=== PATIENT | male | born 1955 | race Caucasian/White ===

== ENCOUNTER 2023-05-26 10:19 | Emergency (ER) | payer MEDICARE, OTHER, SELFPAY ==
[2023-05-26 10:22] VITALS: BP 138/62; PULSE 62; RESP 20; TEMP 37.2; O2SAT 96; BMI 31.9
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
== END 2023-05-26 12:09 | disposition home or self-care (01) ==
PROVIDERS: Emergency Provider Emergency Medicine Emergency Medical Services; PCP Nurse Practitioner Family
DX: S97.81XA Crushing injury of right foot, initial encounter (principal); V03.90XA Pedestrian on foot injured in collision with car, pick-up truck or van, unspecified whether traffic or nontraffic accident, initial encounter; F17.210 Nicotine dependence, cigarettes, uncomplicated
CPT/HCPCS: 73610; 73630; 99283

== ENCOUNTER 2023-05-28 10:55 | Outpatient (OUT) | payer MEDICARE, OTHER, SELFPAY ==
--- NOTE | 2023-05-28 | XR_ITS ---
The [address] [address] Patient Name: REJI TIMMONS MRN: [id number] date: 1955 Sex: M Assigned Patient Location: [facility] Current Patient Location: [facility] Accession/Order Number: [id number] Exam Date: 05/28/2023 11:28 Report Date: 05/28/2023 14:09 At the request of: ROSSY AMATO Procedure: XR ankle RT min 3V PROCEDURE: XR foot RT min 3V, XR ankle RT min 3V HISTORY: RIGHT FOOT PAIN COMPARISON: XR foot and ankle right 05/26/2023 FINDINGS: BONES:Bunion formation and hallux valgus of first metatarsophalangeal joint. Small separate ossification with corticated margins medial to the head of the first metatarsal favoring remote fracture fragment or heterotopic bone formation from remote injury. Mild degenerative changes the midfoot. Small calcaneal plantar spur. Possible hammertoe deformity of second toe. 1 mm calcification distal to the medial malleolus; nonspecific. SOFT TISSUES:Prominent swelling surrounding the ankle and dorsal soft tissue swelling. EFFUSION:None visible. OTHER: Negative. XR/XR ankle RT min 3V IMPRESSION: 1. No appreciable acute bone abnormality. 2. Hallux valgus deformity first metatarsal phalangeal joint. 3. Dorsal soft tissue swelling. 4. 1 mm calcification distal to the medial malleolus; avulsion fracture versus sequela of remote injury. 5. No significant change compared to prior study. Electronically authenticated by: SUHA VALLE Date: 05/28/2023 14:09
--- NOTE | 2023-05-28 | XR_ITS ---
The [address] [address] Patient Name: REJI TIMMONS MRN: [id number] date: 1955 Sex: M Assigned Patient Location: [facility] Current Patient Location: [facility] Accession/Order Number: [id number] Exam Date: 05/28/2023 11:00 Report Date: 05/28/2023 14:09 At the request of: ROSSY AMATO Procedure: XR foot RT min 3V PROCEDURE: XR foot RT min 3V, XR ankle RT min 3V HISTORY: RIGHT FOOT PAIN COMPARISON: XR foot and ankle right 05/26/2023 FINDINGS: BONES:Bunion formation and hallux valgus of first metatarsophalangeal joint. Small separate ossification with corticated margins medial to the head of the first metatarsal favoring remote fracture fragment or heterotopic bone formation from remote injury. Mild degenerative changes the midfoot. Small calcaneal plantar spur. Possible hammertoe deformity of second toe. 1 mm calcification distal to the medial malleolus; nonspecific. SOFT TISSUES:Prominent swelling surrounding the ankle and dorsal soft tissue swelling. EFFUSION:None visible. OTHER: Negative. XR/XR foot RT min 3V IMPRESSION: 1. No appreciable acute bone abnormality. 2. Hallux valgus deformity first metatarsal phalangeal joint. 3. Dorsal soft tissue swelling. 4. 1 mm calcification distal to the medial malleolus; avulsion fracture versus sequela of remote injury. 5. No significant change compared to prior study. Electronically authenticated by: SUHA VALLE Date: 05/28/2023 14:09
--- OUTSIDE RECORDS SUMMARY | 2023-05-28 11:03 | XMS_ITS | CCD ---
Author Name Unknown Address [address] [place] [id number] Organization [facility] Care Team Providers Care Nursing Techn Name Role Phone CORBIN MCFARLAND Attending CORBIN Payne Consulting CORBIN Payne Admitting Unavailable DR MATY MANCILLA Primary Care Unavaila Juvenal Villela Attending Unavailable Juvenal Disla Admitting Unavailable Problems Problem Classification Problem Date Documented Da te Episodic/Chronic Heart valve disorders (1 source) Nonrheumatic aortic (valve) insufficiency; Translations: [NONRHEUMATIC AORTIC INSUFFICIENCY] Onset: 11-15-2021 Chronic Other circulatory disease (4 sources) Hypotension, unspecified; Translations: [HYPOTENSION UNSPECIFIED] Onset: 11-13-2021 Episodic Results Test Name Value Interpretation Reference Range Facility C-Reactive Proteinon 024 C-Reactive Protein 3.3 mg/dL High 0.0-0.5 [facility] Comment on above: Result Comment: PERF ORMED BY: [place] [address] PATHOLOGIST POMPOM MAKER KEYSHA YIP M.D. Performed By: #### E SR, CK, CRP #### [facility] [address] [place], [place] [id number] [facility] Creatine Kinaseon 05-27-2023 CK [Catalytic activity/Vol] 262 U/L High 30-223 [facility] Comment on above: Result Comment: PERF ORMED BY: [place] [address] PATHOLOGIST POMPOM MAKER KEYSHA YIP M.D. Performed By: #### E SR, CK, CRP #### [facility] [address] [place] [address] [place] Erythrocyte Sedimentation Ra yony 05-27-2023 ESR (Bld) [Velocity] 17 mm/h Normal 0-19 [facility] Comment on above: Result Comment: PERF ORMED BY: [place] [address] PATHOLOGIST POMPOM MAKER KEYSHA YIP M.D. Performed By: #### E SR, CK, CRP #### [address] ECHOCARDIO M/2D COMPLETEon 0 11-13-2021 ECHOCARDIO M/2D COMPLETE Patient: BOO MCALLISTER Exam Date: 11/13/2021 : 1955 Gender:M Ordering : CORBIN MCFARLAND FAMILY N Admission #: [id number] Family : Order #: [id number] CLICK HERE TO VIEW EXAM ECHOCARDIOGRAM REPORT PROCEDURE: CARDIO PULMONARY ECHOCARDIO M/2D COMP INDICATIONS: Hypotension COMPARISON: None. DESCRIPTION: COMPLETE ECHOCARDIOGRAM Real-time transthoracic echocardiography with 2D, M-mode, spectral and color flow Doppler performed. QUALITY: Technical quality was good. LEFT VENTRICLE: Normal chamber size. Mild concentric left ventricular hypertrophy. Global left ventricular systolic function is normal. Visual estimation of left ventricular ejection fraction is 60%. LV EF: DIASTOLIC: Diastolic function is indeterminate. ATRIAL SEPTUM: LEFT ATRIUM: Normal chamber size. RIGHT ATRIUM: Normal chamber size. RIGHT VENTRICLE: Normal chamber size. Normal right ventricular systolic function. TRICUSPID VALVE: Normal mobility and thickness. No stenosis with trivial regurgitation. Mild pulmonary hypertension. RVSP 42 mmHg. MITRAL VALVE: Normal mobility and thickness. No mitral valve prolapse. No evidence of mitral valve stenosis. Trivial mitral regurgitation. AORTIC VALVE: Normal trileaflet appearance. Mildly calcified aortic valve. Normal leaflet mobility. No evidence of aortic valve stenosis. Mild to moderate aortic regurgitation. AORTIC ROOT: Normal diameter and appearance. PULMONIC VALVE: Normal thickness and mobility. No stenosis. PERICARDIUM: No evidence of pericardial effusion. IVC: Collapses with inspirations. Normal size. PLEURA: CONCLUSION: 1. Mild concentric left ventricular hypertrophy. Normal left ventricular systolic function. Ejection fraction is 60%. 2. Normal right ventricular function. 3. Mild to moderate aortic regurgitation. 4. Mildly elevated right-sided pressures. 5. No pericardial effusion. Adult Echocardiography Procedure Report Left Ventricle LVEDD (3.7 - 5.6 cm): 5.12 cm LVESD (2.2 - 4.0 cm): 3.32 cm LVIVS thickness (0.6 - 1.2 cm): 1.35 cm LVPW thickness (0.5 - 1.0 cm): 1.20 cm e': 7.13 cm/s E - e': 12.30 LVOT Area (cm2): 3.80 cm2 LVOT Diameter 2.20 cm Left Ventricular Ejection Fraction: 60 % Left Atrium LA Volume Index (2D A2C): 32.90 ml/m2 Left Atrium Systolic Dimension: 4.30 cm Left Atrium Systolic Area(A2C): 23.90 cm2 Left Atrium Systolic Area(A4C): 19.10 cm2 Left Atrium Systolic Volume(A2C): 26059 mm3 Left Atrium Systolic Volume(A4C): 96277 mm3 Mitral Valve MV E to A Ratio: 1 Deceleration Orleans: 4180 mm/s2 Mitral Valve A-Wave Peak Velocity: 87.90 cm/s Mitral Valve E-Wave Peak Velocity: 87.40 cm/s Right Ventricle RV Internal Diastolic Dimension: 4.20 cm Aorta AO Root Diam: 3.60 cm Aortic Valve AoV Area (Peak Laureano): 2.25 cm2 Deceleration Orleans: 1600 mm/s2 Pressure Half-Time: 975 ms Peak Velocity: 531.00 cm/s Peak Gradient: 113 mm[Hg] Aortic Valve Cusp Separation: 1.90 cm Peak Velocity(Antegrade Flow): 179.00 cm/s Peak Gradient(Antegrade Flow): 13 mm[Hg] Tricuspid Valve Peak Velocity (Regurgitant Flow): 297.00 cm/s Pulmonic Valve Peak Velocity: 88.20 cm/s Peak Gradient: 3 mm[Hg] Right Atrium Dictated by: Phong Leon M.D. on 11/13/2021 at 19:29 Approved by: Phong Leon M.D. on 11/13/2021 at 19:[address] [facility] Complete Blood Count with Au to Diffon 10-16-2021 Basophils (Bld) [#/Vol] 0.05 10*3/uL Normal 0.00-0.20 [facility] Comment on above: Performed By: #### C BCAD, CMP #### [facility] [address] [place] [id number] Basophils/100 WBC (Bld) 0.6 % Normal [facility] Specialist Comment on above: Performed By: #### C MARIA LUISA, CMP #### [facility] [address] [place], [place] [id number] Eosinophils (Bld) [#/Vol] 0.41 10*3/uL Normal 0.02-0.50 [facility] Comment on above: Performed By: #### C MARIA LUISA, CMP #### [facility] [address] [place], [place] [id number] Eosinophils/100 WBC (Bld) 4.9 % Normal [facility] Specialist Comment on above: Performed By: #### Latanya GLASS, CMP #### [facility] [address] [place], [place] [id number] Erythrocyte distribution width (RBC) [Ratio] 14.6 % Normal 11.0-15.0 [facility] Comment on above: Performed By: #### C MARIA LUISA, CMP #### [facility] [address] [place], [place] [id number] Hematocrit (Bld) [Volume fraction] 45.8 % Normal 38.5-50.0 [facility] Comment on above: Performed By: #### Latanya GLASS, CMP #### [facility] [address] [place], [place] [id number] Hemoglobin (Bld) [Mass/Vol] 14.9 g/dL Normal 13.0-17.1 [facility] Comment on above: Performed By: #### C BCABryce, CMP #### [facility] [address] [place], [place] [id number] Lymphocytes (Bld) [#/Vol] 2.4 10*3/uL Normal 0.9-3.9 [facility] Specialist Comment on above: Performed By: #### C BCABryce, CMP #### [facility] [address] [place], [place] [id number] Lymphocytes/100 WBC (Bld) 28.5 % Normal [facility] Specialist Comment on above: Performed By: #### C MARIA LUISA, CMP #### [facility] [address] [place], [place] [id number] MCH (RBC) [Entitic mass] 29.9 pg Normal 27.0-33.0 [facility] Special[facility] Comment on above: Performed By: #### C MARIA LUISA, CMP #### [facility] [address] [place], [place] [id number] MCHC (RBC) [Mass/Vol] 32.5 g/dL Normal 32.0-36.0 [facility] Special[facility] Comment on above: Performed By: #### C BCABryce, CMP #### [facility] [address] [place], [place] [id number] MCV (RBC) [Entitic vol] 92 fL Normal 80-100 [facility] Specialist Comment on above: Performed By: #### C BCABryce, CMP #### [facility] [address] [place], [place] [id number] Monocytes (Bld) [#/Vol] 0.7 10*3/uL Normal 0.2-0.9 [facility] Special[facility] Comment on above: Performed By: #### C BCABryce, CMP #### [facility] [address] [place], [place] [id number] Monocytes/100 WBC (Bld) 7.8 % Normal [facility] Specialist Comment on above: Performed By: #### C BCABryce, CMP #### [facility] [address] [place], [place] [id number] Neutrophils (Bld) [#/Vol] 4.9 10*3/uL Normal 1.5-7.8 [facility] Special[facility] Comment on above: Performed By: #### C BCAD, CMP #### [facility] [address] [place], [place] [id number] Neutrophils/100 WBC (Bld) 58.0 % Normal [facility] Specialist Comment on above: Performed By: #### C BCAD, CMP #### [facility] [address] [place], [place] [id number] Platelet mean volume (Bld) [Entitic vol] 11.10 fL Normal 7.50-12.50 [facility] Special[facility] Comment on above: Performed By: #### C BCAD, CMP #### [facility] [address] [place], [place] [id number] Platelets (Bld) [#/Vol] 230 10*3/uL Normal 140-400 [facility] Specialist Comment on above: Performed By: #### C BCAD, CMP #### [facility] [address] [place], [place] [id number] RBC (Bld) [#/Vol] 4.99 10*6/uL Normal 4.20-5.80 [facility] Specialist Comment on above: Performed By: #### C BCAD, CMP #### [facility] [address] [place], [place] [id number] RDW-SD 49.0 fL Normal 37.0-50.0 [facility] Specialist Comment on above: Performed By: #### C BCAD, CMP #### [facility] [address] [place], [place] [id number] WBC (Bld) [#/Vol] 8.4 10*3/uL Normal 3.8-11.0 [facility] Comment on above: Performed By: #### C BCAD, CMP #### [facility] [address] [place], [place] [id number] Comprehensive Metabolic Pane [facility] 10-16-2021 Albumin [Mass/Vol] 4.6 g/dL Normal 3.6-5.1 [facility] Specialist Comment on above: Performed By: #### C BCAD, CMP #### [facility] [address] [place], [place] [id number] Albumin/Globulin [Mass ratio] 2.4 {ratio} Normal 1.0-2.5 [facility] Specialist Comment on above: Performed By: #### C BCAD, CMP #### [facility] [address] [place], [place] [id number] ALP [Catalytic activity/Vol] 63 U/L Normal 40-129 [facility] Specialist Comment on above: Performed By: #### C BCAD, CMP #### [facility] [address] [place], [place] [id number] ALT [Catalytic activity/Vol] 27 U/L Normal 9-46 [facility] Specialist Comment on above: Result Comment: 04/18 Female reference range changed. Performed By: #### C BCAD, CMP #### [facility] [address] [place], [place] [id number] Anion gap [Moles/Vol] 18 mmol/L Normal 12-20 [facility] Specialist Comment on above: Result Comment: Effe ctive 05/24/2019 reference range changed. Performed By: #### C BCAD, CMP #### [facility] [address] [place], [place] [id number] AST [Catalytic activity/Vol] 15 U/L Normal 10-40 [facility] Comment on above: Performed By: #### C BCAD, CMP #### [facility] [address] [place], [place] [id number] BUN/CREA 22 Ratio Normal 6-22 [facility] Comment on above: Performed By: #### C BCAD, CMP #### [facility] [address] [place], [place] [id number] Calcium [Mass/Vol] 9.4 mg/dL Normal 8.6-10.2 [facility] Comment on above: Performed By: #### C BCAD, CMP #### [facility] [address] [place], [place] [id number] Chloride [Moles/Vol] 103 mmol/L Normal 98-107 [facility] Comment on above: Performed By: #### C BCAD, CMP #### [facility] [address] [place], [place] [id number] CO2 [Moles/Vol] 24 mmol/L Normal 20-31 [facility] Comment on above: Performed By: #### C BCAD, CMP #### [facility] [address] [place], [place] [id number] Creatinine [Mass/Vol] 0.9 mg/dL Normal 0.7-1.4 [facility] Comment on above: Performed By: #### C BCAD, CMP #### [facility] [address] [place], [place] [id number] eGFRAA 110 mL/min/1.73m2 Normal >60 [facility] Comment on above: Performed By: #### C BCAD, CMP #### [facility] [address] [place], [place] [id number] eGFRNAA 91 mL/min/1.73m2 Normal >60 [facility] Comment on above: Performed By: #### C BCAD, CMP #### [facility] [address] [place], [place] [id number] Globulin (S) [Mass/Vol] 1.9 g/dL Normal 1.9-3.7 [facility] Comment on above: Performed By: #### C BCAD, CMP #### [facility] [address] [place], [place] [id number] Glucose [Mass/Vol] 178 mg/dL High 65-99 [facility] Rec[facility] Comment on above: Result Comment: For FASTING Glucose --- ADA reference ranges: Normal 65-99 mg/dl Prediabetes 100-125 Diabetes >/= 126 Performed By: #### C BCAD, CMP #### [facility] [address] [place], [place] [id number] Potassium [Moles/Vol] 4.6 mmol/L Normal 3.5-5.5 [facility] Comment on above: Performed By: #### C BCAD, CMP #### [facility] [address] [place], [place] [id number] Protein [Mass/Vol] 6.5 g/dL Normal 6.1-8.1 [facility] Rec[facility] Comment on above: Performed By: #### C BCAD, CMP #### [facility] [address] [place], [place] [id number] Sodium [Moles/Vol] 139 mmol/L Normal 135-146 [facility] Grade Rec[facility] Comment on above: Performed By: #### C BCAD, CMP #### [facility] [address] [place], [place] [id number] TBIL <0.3 Normal [facility] Comment on above: Performed By: #### C BCAD, CMP #### [facility] [address] [place], [place] [id number] Urea nitrogen [Mass/Vol] 19 mg/dL Normal 7-25 [facility] Comment on above: Performed By: #### C BCAD, CMP #### [facility] [address] [place], [place] [id number] XR Chest 2 Views*on 10-17-19 22 XR Chest 2 Views* HISTORY: Wheezing, fatigue FINDINGS: Mild peribronchial cuffing is present, which may suggest bronchitis. No focal infiltrates or worrisome mass lesions are seen. No pneumothorax is present. Cardiac silhouette, skeletal structures and soft tissues are unremarkable. Distal cervical fusion hardware. IMPRESSION: No focal infiltrates or edema. Report reported and signed by Jesus Mason on 10/16/2021 1132 Normal [facility] Complete Blood Count with Au to Diffon 05-08-2021 Basophils (Bld) [#/Vol] 0.08 10*3/uL Normal 0.00-0.20 [facility] Comment on above: Performed By: #### C MP, VITD, TSH, LIPD, CBCAD #### [facility] [address] [place], [place] [id number] Basophils/100 WBC (Bld) 0.8 % Normal [facility] Comment on above: Performed By: #### C MP, VITD, TSH, LIPD, CBCAD #### [facility] [address] [place], [place] [id number] Eosinophils (Bld) [#/Vol] 0.37 10*3/uL Normal 0.02-0.50 [facility] Comment on above: Performed By: #### C MP, VITD, TSH, LIPD, CBCAD #### [facility] [address] [place], [place] [id number] Eosinophils/100 WBC (Bld) 3.8 % Normal [facility] Specialist Comment on above: Performed By: #### C MP, VITD, TSH, LIPD, CBCAD #### [facility] [address] [place], [place] [id number] Erythrocyte distribution width (RBC) [Ratio] 13.8 % Normal 11.0-15.0 [facility] Comment on above: Performed By: #### C MP, VITD, TSH, LIPD, CBCAD #### [facility] [address] [place], [place] [id number] Hematocrit (Bld) [Volume fraction] 44.8 % Normal 38.5-50.0 [facility] Specialist Comment on above: Performed By: #### C MP, VITD, TSH, LIPD, CBCAD #### [facility] [address] [place], [place] [id number] Hemoglobin (Bld) [Mass/Vol] 14.6 g/dL Normal 13.0-17.1 [facility] Specialist Comment on above: Performed By: #### C MP, VITD, TSH, LIPD, CBCAD #### [facility] [address] [place], [place] [id number] Lymphocytes (Bld) [#/Vol] 3.0 10*3/uL Normal 0.9-3.9 [facility] Specialist Comment on above: Performed By: #### C MP, VITD, TSH, LIPD, CBCAD #### [facility] [address] [place], [place] [id number] Lymphocytes/100 WBC (Bld) 30.7 % Normal [facility] Specialist Comment on above: Performed By: #### C MP, VITD, TSH, LIPD, CBCAD #### [facility] [address] [place], [place] [id number] MCH (RBC) [Entitic mass] 30.0 pg Normal 27.0-33.0 [facility] Specialist Comment on above: Performed By: #### C MP, VITD, TSH, LIPD, CBCAD #### [facility] [address] [place], [place] [id number] MCHC (RBC) [Mass/Vol] 32.6 g/dL Normal 32.0-36.0 [facility] Specialist Comment on above: Performed By: #### C MP, VITD, TSH, LIPD, CBCAD #### [facility] [address] [place], [place] [id number] MCV (RBC) [Entitic vol] 92 fL Normal 80-100 [facility] Specialist Comment on above: Performed By: #### C MP, VITD, TSH, LIPD, CBCAD #### [facility] [address] [place], [place] [id number] Monocytes (Bld) [#/Vol] 0.9 10*3/uL Normal 0.2-0.9 [facility] Comment on above: Performed By: #### C MP, VITD, TSH, LIPD, CBCAD #### [facility] [address] [place], [place] [id number] Monocytes/100 WBC (Bld) 8.9 % Normal [facility] Comment on above: Performed By: #### C MP, VITD, TSH, LIPD, CBCAD #### [facility] [address] [place], [place] [id number] Neutrophils (Bld) [#/Vol] 5.4 10*3/uL Normal 1.5-7.8 [facility] Comment on above: Performed By: #### C MP, VITD, TSH, LIPD, CBCAD #### [facility] [address] [place], [place] [id number] Neutrophils/100 WBC (Bld) 55.5 % Normal [facility] Comment on above: Performed By: #### C MP, VITD, TSH, LIPD, CBCAD #### [facility] [address] [place], [place] [id number] Platelet mean volume (Bld) [Entitic vol] 10.70 fL Normal 7.50-12.50 [facility] Comment on above: Performed By: #### C MP, VITD, TSH, LIPD, CBCAD #### [facility] [address] [place], [place] [id number] Platelets (Bld) [#/Vol] 242 10*3/uL Normal 140-400 [facility] Comment on above: Performed By: #### C MP, VITD, TSH, LIPD, CBCAD #### [facility] [address] [place], [place] [id number] RBC (Bld) [#/Vol] 4.86 10*6/uL Normal 4.20-5.80 [facility] Comment on above: Performed By: #### C MP, VITD, TSH, LIPD, CBCAD #### [facility] [address] [place], [place] [id number] RDW-SD 47.3 fL Normal 37.0-50.0 [facility] Comment on above: Performed By: #### C MP, VITD, TSH, LIPD, CBCAD #### [facility] [address] [place], [place] [id number] WBC (Bld) [#/Vol] 9.7 10*3/uL Normal 3.8-11.0 [place] [place] [facility] Comment on above: Performed By: #### C MP, VITD, TSH, LIPD, CBCAD #### [facility] [address] [place], [place] [id number] Comprehensive Metabolic Pane wil[place] 05-08-2021 Albumin [Mass/Vol] 4.7 g/dL Normal 3.6-5.1 [place] [facility] [place] [facility] Comment on above: Performed By: #### C MP, VITD, TSH, LIPD, CBCAD #### [facility] [address] [place], [place] [id number] Albumin/Globulin [Mass ratio] 2.6 {ratio} High 1.0-2.5 [facility] Specialist Comment on above: Performed By: #### C MP, VITD, TSH, LIPD, CBCAD #### [facility] [address] [place], [place] [id number] ALP [Catalytic activity/Vol] 60 U/L Normal 40-129 [facility] Specialist Comment on above: Performed By: #### C MP, VITD, TSH, LIPD, CBCAD #### [facility] [address] [place], [place] [id number] ALT [Catalytic activity/Vol] 27 U/L Normal 9-46 [facility] Comment on above: Result Comment: 04/18 Female reference range changed. Performed By: #### C MP, VITD, TSH, LIPD, CBCAD #### [facility] [address] [place], [place] [id number] Anion gap [Moles/Vol] 19 mmol/L Normal 12-20 [facility] Specialist Comment on above: Result Comment: Effe ctive 05/24/2019 reference range changed. Performed By: #### C MP, VITD, TSH, LIPD, CBCAD #### [facility] [address] [place], [place] [id number] AST [Catalytic activity/Vol] 16 U/L Normal 10-40 [facility] Comment on above: Performed By: #### C MP, VITD, TSH, LIPD, CBCAD #### [facility] [address] [place], [place] [id number] Bilirubin [Mass/Vol] 0.35 mg/dL Normal 0.30-1.20 [facility] Specialist Comment on above: Performed By: #### C MP, VITD, TSH, LIPD, CBCAD #### [facility] [address] [place], [place] [id number] BUN/CREA 24 Ratio High 6-22 [facility] Specialist Comment on above: Performed By: #### C MP, VITD, TSH, LIPD, CBCAD #### [facility] [address] [place], [place] [id number] Calcium [Mass/Vol] 9.5 mg/dL Normal 8.6-10.2 [facility] Comment on above: Performed By: #### C MP, VITD, TSH, LIPD, CBCAD #### [facility] [address] [place], [place] [id number] Chloride [Moles/Vol] 99 mmol/L Normal 98-107 [facility] Specialist Comment on above: Performed By: #### C MP, VITD, TSH, LIPD, CBCAD #### [facility] [address] [place], [place] [id number] CO2 [Moles/Vol] 24 mmol/L Normal 20-31 [facility] Specialist Comment on above: Performed By: #### C MP, VITD, TSH, LIPD, CBCAD #### [facility] [address] [place], [place] [id number] Creatinine [Mass/Vol] 1.0 mg/dL Normal 0.7-1.4 [facility] Specialist Comment on above: Performed By: #### C MP, VITD, TSH, LIPD, CBCAD #### [facility] [address] [place], [place] [id number] eGFRAA 90 mL/min/1.73m2 Normal >60 [facility] Specialist Comment on above: Performed By: #### C MP, VITD, TSH, LIPD, CBCAD #### [facility] [address] [place], [place] [id number] eGFRNAA 74 mL/min/1.73m2 Normal >60 [facility] Specialist Comment on above: Performed By: #### C MP, VITD, TSH, LIPD, CBCAD #### [facility] [address] [place], [place] [id number] Globulin (S) [Mass/Vol] 1.8 g/dL Low 1.9-3.7 [facility] Comment on above: Performed By: #### C MP, VITD, TSH, LIPD, CBCAD #### [facility] [address] [place], [place] [id number] Glucose [Mass/Vol] 119 mg/dL High 65-99 [facility] Comment on above: Result Comment: For FASTING Glucose --- ADA reference ranges: Normal 65-99 mg/dl Prediabetes 100-125 Diabetes >/= 126 Performed By: #### C MP, VITD, TSH, LIPD, CBCAD #### [facility] [address] [place], [place] [id number] Potassium [Moles/Vol] 5.1 mmol/L Normal 3.5-5.5 [facility] Comment on above: Performed By: #### C MP, VITD, TSH, LIPD, CBCAD #### [facility] [address] [place], [place] [id number] Protein [Mass/Vol] 6.5 g/dL Normal 6.1-8.1 [facility] Grade Rec[facility] Comment on above: Performed By: #### C MP, VITD, TSH, LIPD, CBCAD #### [facility] [address] [place], [place] [id number] Sodium [Moles/Vol] 137 mmol/L Normal 135-146 [facility] Grade Recorder Comment on above: Performed By: #### C MP, VITD, TSH, LIPD, CBCAD #### [facility] [address] [place], [place] [id number] Urea nitrogen [Mass/Vol] 25 mg/dL Normal 7-25 [facility] Comment on above: Performed By: #### C MP, VITD, TSH, LIPD, CBCAD #### [facility] [address] [place], [place] [id number] Lipid Panelon 05-08-2021 Cholesterol [Mass/Vol] 120 mg/dL Low 125-200 [facility] Rec[facility] Comment on above: Result Comment: Low risk < 200mg/dL Borderline risk 201-239 mg/dl High risk > or equal to 240 Performed By: #### C MP, VITD, TSH, LIPD, CBCAD #### [facility] [address] [place], [place] [id number] Cholesterol in HDL [Mass/Vol] 26 mg/dL Low >40 [facility] Specialist Comment on above: Result Comment: High Cardiovascular Risk HDL <40 mg/dL Low Cardiovascular Risk HDL > or equal to 60 mg/dl Performed By: #### C MP, VITD, TSH, LIPD, CBCAD #### [facility] [address] [place], [place] [id number] Cholesterol in LDL [Mass/Vol] 50 mg/dL Normal [facility] Specialist Comment on above: Result Comment: LDL ATP III CLASSIFICATION LDL less than 100 mg/dl Optimal LDL 100-129 mg/dl Near or above optimal LDL 130-159 Borderline high LDL 160-189 High LDL greater than 189 mg/dl Very High Performed By: #### C MP, VITD, TSH, LIPD, CBCAD #### [facility] [address] [place], [place] [id number] Cholesterol in VLDL [Mass/Vol] 44 mg/dL Normal [facility] Specialist Comment on above: Performed By: #### C MP, VITD, TSH, LIPD, CBCAD #### [facility] [address] [place], [place] [id number] Cholesterol.total/C holesterol in HDL [Mass ratio] 5 {ratio} Normal [facility] Specialist Comment on above: Performed By: #### C MP, VITD, TSH, LIPD, CBCAD #### [facility] [address] [place], [place] [id number] Triglyceride [Mass/Vol] 221 mg/dL High 30-150 [facility] Specialist Comment on above: Result Comment: TRIG ATPIII CLASSIFICATIONS TRIG less than 150 mg/dl Normal TRIG 150-199 mg/dl Borderline High TRIG 200-500 mg/dl High TRIG greather than 500 mg/dl Very High Performed By: #### C MP, VITD, TSH, LIPD, CBCAD #### [facility] [address] [place], [place] [id number] Prostatic Specific Antigen, Totalon 05-08-2021 TPSA 0.427 ng/mL Normal <4.000 [facility] Grade Recorder Comment on above: Result Comment: PSA Test Method: ECLIA/Milagros e 601 Performed By: #### P SA #### [facility] [address] [place], [place] [id number] TSHon 05-08-2021 TSH 3.630 uIU/mL Normal 0.400-4.500 [facility] Grade Recorder Comment on above: Performed By: #### C MP, VITD, TSH, LIPD, CBCAD #### [facility] [address] [place], [place] [id number] Vitamin D 25-OHon 05-08-2021 VIT D 25 OH 52 ng/ml Normal >29 [facility] Specialist Comment on above: Result Comment: Laquita min D Status Deficiency <20 ng/mL Insufficiency 20-29 ng/mL Optimal 30-100 ng/mL Possible Toxicity >=150 ng/mL Performed By: #### C MP, VITD, TSH, LIPD, CBCAD #### [facility] [address] [place], [place] [id number] Patient Letter FTon 2020 Patient Letter [facility] (Inserted Image. Maty ble to display) August 28, 2020 BOO MCALLISTER [address] [place] [address] BOO MCALLISTER 1955 Dear Boo, This is a SECOND ATTEMPT to remind you that you are due for an appointment with Dr. Araujo or Dr. Zuniga. Please call [facility] at [phone] to schedule an appointment at your earliest convenience. Thank you, [facility] Reminderson 08-28-2020 Reminders - From: Marta Riojas MA To: [facility] - Reminders/Recalls; Sent: 10/18/2019 10:24:45 EDT Show up: 07/17/2020 10:24:00 EST Subject: REMINDER RECALL AUGUST 2020 Due Date/Time: 08/17/2020 10:24:00 EDT Reminder/Recall DR BANUELOS 5YR COLON 09/13/2020 First Recall Letter second recall letter Normal [facility] Patient Letter FTon 2020 Patient Letter [facility] (Inserted Image. Maty ble to display) July 19, 2020 BOO MCALLISTER [address] [facility] [place] [address] BOO MCALLISTER 1955 Dear Boo, This is a reminder that you are due for an appointment with Dr. Araujo or Dr. Zuniga. Please call [facility] at [phone] to schedule an appointment at your earliest convenience. Thank you, [facility] IntraOperative Documentson 0 07-11-2020 IntraOperative Documents [id number]#1.00CD:1 27 [facility] Comment on above: Other Comment: wrong folder Postoperative Documentson Postoperative Documents [id number]#1.00CD :127 [facility] IntraOperative Documentson 0 07-05-2020 IntraOperative Documents [id number]#1.00CD: 127 [facility] Coding Summary.on 07-03-2020 Coding Summary. CODING DATE: [facility] STATUS: Home (Routine DC) PAYOR: [facility] [place] APC DESCRIPTION 5811 Level 1 Nerve Procedures ADMIT DX: REASON FOR VISIT DX: G56.01 Carpal tunnel syndrome, right upper limb FINAL DX: PRINCIPAL: G56.01 Carpal tunnel syndrome, right upper limb SECONDARY: I10 Essential (primary) hypertension E11.9 Type 2 diabetes mellitus without complications K21.9 Gastro-esophageal reflux disease without esophagitis E78.00 Pure hypercholesterolemia, unspecified F32.9 Major depressive disorder, single episode, unspecified F17.210 Nicotine dependence, cigarettes, uncomplicated 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 However, the narrative phrase printed from the coding software may appear abbreviated, or result in slightly different terminology. Revised Coded By: Kim Sagastume Revised Date Saved: 07/03/2020 01:00 pm Normal [facility] Main OR Intraoperative Recor don 07-03-2020 Main OR Intraoperative Record IntraOp Document Type FT Summary Primary Physician: Deion Andres DO Finalized Date/Time: 07/03/20 09:06:54 Pt. Name: MCALLISTERBOO/Sex: 1955 Male Med Rec #: [id number] Physician: Deion Andres DO Financial #: [id number] Pt. Type: A Room/Bed: [facility]/ Admit/Disch: 06/28/20 06:01:55 - 06/28/20 10:05:00 Institution: Case Times FT Entry 1 Patient Times In Room 06/28/20 07:52:00 Out Room 06/28/20 08:17:00 Procedure Times Start 06/28/20 08:08:00 Stop 06/28/20 08:15:00 Anesthesia Times Start 06/28/20 07:52:00 Stop 06/28/20 08:17:00 Last Modified By: Ariane Fontenot RN 06/28/20 08:18:37 General Comments: 07/03/2020 Chart opened to review and send charges. Berto Lawrence SPRAY OPERATOR. Case Attendance FT Entry 1 Entry 2 Entry 3 Case Attendee Cas May CRNA, DO, David A Chapin RN, Jennifer P Role Performed NORRIS Surgeon - Primary Water Taxi Captain - Primary Time In 06/28/20 07:52:00 06/28/20 07:52:00 06/28/20 07:52:00 Time Out 06/28/20 08:17:00 06/28/20 08:17:00 06/28/20 08:17:00 Procedure CARPAL TUNNEL CARPAL TUNNEL CARPAL TUNNEL RELEASE(Right) RELEASE(Right) RELEASE(Right) Comments orientation Last Modified By: Po IRELAND, Ariane Fontenot RN, Ariane Richter RN 06/28/20 08:18:39 06/28/20 08:18:39 06/28/20 08:18:39 Entry 4 Entry 5 Case Attendee Avel IRELAND, Eriberto Winter Role Performed Water Taxi Captain - Primary Scrub - Primary Time In 06/28/20 07:52:00 06/28/20 07:52:00 Time Out 06/28/20 08:17:00 06/28/20 08:17:00 Procedure CARPAL TUNNEL CARPAL TUNNEL RELEASE(Right) RELEASE(Right) Comments Last Modified By: Ariane Fontenot RN, RN, Jennifer P 06/28/20 08:18:39 06/28/20 08:18:39 Perioperative Protocols FT Pre-Care Text: Implements protective measures prior to operative or invasive procedure, confirms identity before the operative or invasive procedure, verifies operative procedure, surgical site, and laterality Entry 1 Procedure(s) CARPAL TUNNEL Patient Identity Birthday, ID Band RELEASE(Right) Verified (select at Check, Patient least 2): Participation Consents / H and P Anesthesia Consent, Operative Site Present Verified HandP, Surgery/Procedure Marking Verified Consent Surgical Site Yes Laterality Verified Yes Verified Procedure Verified Yes Correct Patient Yes Position Verified Availability Equipment, Medication Prep Dry Yes Verified (If Applicable) Time Out Cas May CRNA, Time Out Complete 06/28/20 08:05:00 Participants Deion Andres DO, Chapin RN, Avel Arriaza RN, Brittany Mccoy Corey X Outcomes Met? Yes Last Modified By: Ariane Fontenot RN 06/28/20 08:18:53 Post-Care Text: The patient is free from signs and symptoms of injury caused by extraneous objects Allergy Information FT Pre-Care Text: Verifies allergies Entry 1 Allergies Reviewed? Yes Allergies Reviewed Self/Patient With Outcomes Met? Yes Last Modified By: Ariane Fontenot RN 06/28/20 07:49:08 Post-Care Text: The patient received appropriate medication(s) safely administered during the perioperative period Surgical Procedures FT Entry 1 Procedure Description Procedure CARPAL TUNNEL RELEASE Modifiers Right Surgeon Description RIGHT CARPAL TUNNEL RELEASE Primary Procedure Yes Primary Surgeon Deion Andres DO Start 06/28/20 08:08:00 Stop 06/28/20 08:15:00 Anesthesia Type General Surgical Service Orthopedics Wound Class 1 - Clean Last Modified By: Ariane Fontenot RN 06/28/20 08:19:00 General Case Data FT Pre-Care Text: Classifies surgical wound, implements aseptic technique, initiates traffic control Entry 1 Case Information OR OR 5 FT Case Level Level 2 Wound Class 1 - Clean Specialty Orthopedics ASA Class 3 Preop Diagnosis CARPAL TUNNEL SYNDROME Postop Same As Preop Yes RIGHT Postop Diagnosis CARPAL TUNNEL SYNDROME Outcomes Met? Yes RIGHT Last Modified By: Pj Lawrence CST 07/03/20 09:06:51 Post-Care Text: The patient is free from signs and symptoms of infection Skin Assessment (Pre Procedure) FT Pre-Care Text: Implements protective measures to prevent skin/ tissue injury due to thermal or mechanical sources Evaluates for signs and symptoms of physical injury to skin and tissue Entry 1 Skin Integrity Intact, Lattimer, Warm, and Skin Abnormality No Dry Outcomes Met? Yes Last Modified By: Ariane Fnotenot RN 06/28/20 07:49:37 Post-Care Text: The patient is free from signs and symptoms of injury caused by extraneous objects Patient Positioning FT Pre-Care Text: Identifies physical alterations that require additional precautions for procedure-specific positioning, verifies presence of prosthetics or corrective devices, positions the patient, evaluates the patient for signs and symptoms of injury as a result of positioning Entry 1 Procedure CARPAL TUNNEL Body Position Supine RELEASE(Right) Feet Uncrossed? Yes Left Arm Position Extended on Padded Arm Board Right Arm Position Extended on Padded Arm Left Leg Position Extended Board Right Leg Position Extended Positioning Device Safety Strap, Pillow Under Head Large, Hand Table Press Points Checked Yes By Avel IRELAND, Lalo Mccoy CRNA, Scott M., Ariane Fontenot RN Outcomes Met? Yes Last Modified By: Ariane Fontenot RN 06/28/20 08:19:24 Post-Care Text: The patient is free from signs and symptoms of injury related to positioning Patient Care Devices FT Pre-Care Text: Implements protective measures to prevent skin/ tissue injury due to thermal or mechanical sources Entry 1 Entry 2 Entry 3 Equipment Type HAND TABLE [F] MONITOR CHARGE SURGERY TOURNIQUET MAGDA [F] [F] Equipment Number b Equipment Setting Outcomes Met? Yes Yes Yes Last Modified By: Ariane Fontenot RN, RN, Jennifer P Chapin RN, Jennifer P 06/28/20 07:53:18 06/28/20 07:53:18 06/28/20 10:35:39 Post-Care Text: The patient is free from signs and symptoms of injury caused by extraneous objects Transport To OR FT Pre-Care Text: Transports according to individual needs. Evaluates for signs and symptoms of skin and tissue injury as a result of transfer or transport Entry 1 Via Cart By Ariane Fontenot RN Safety Precautions Side Rails Up Outcomes Met? Yes Last Modified By: Ariane Fontenot RN 06/28/20 08:19:30 Post-Care Text: The patient is free from signs and symptoms of injury related to transfer/transport General Comments: Report given to PACU nurse Lani IRELAND Counts Verification FT Pre-Care Text: Performs required counts Entry 1 Entry 2 Procedure(s) CARPAL TUNNEL CARPAL TUNNEL RELEASE(Right) RELEASE(Right) Type Initial Final Items Sponges, Sharps Sponges, Sharps Status Correct Correct Time By Ariane Fontenot RN, Stacey, Corey X, Eriberto Wiley RN, Jennifer P Outcomes Met? Yes Yes Last Modified By: Ariane Fontenot RN, RN, Jennifer P 06/28/20 08:18:05 06/28/20 08:18:05 Post-Care Text: The patient is free from signs and symptoms of injury caused by extraneous objects Skin Prep FT Pre-Care Text: Performs skin preparations Entry 1 Procedure CARPAL TUNNEL Prep Agents Chloraprep/Dry Prior to RELEASE(Right) Draping Start Dry Time 06/28/20 08:04:00 Stop Dry Time 06/28/20 08:07:00 Hair Removal Methods Not Indicated By Marta Vallecillo RN Outcomes Met? Yes Last Modified By: Ariane Fontenot RN 06/28/20 08:20:51 Post-Care Text: The patient is free from signs and symptoms of infection Departure From OR FT Pre-Care Text: Transports according to individual needs. Evaluates for signs and symptoms of skin and tissue injury as a result of transfer or transport. Entry 1 Via Cart Safety Precautions Side Rails Up PostOp Destination PACU Transported By Ariane Fontenot RN, Avel IRELAND, Marta Jean-Baptiste Patient Status Stable Skin. Condition Intact, Lattimer, Warm, and Dry Airway Maintenance Oxygen in Use? Yes Airway Device Simple Mask Flow Rate 8 L/min Outcomes Met? Yes Last Modified By: Ariane Fontenot RN 06/28/20 10:36:44 Post-Care Text: The patient is free from signs and symptoms of injury related to transfer/transport General Comments: rEPORT GIVEN TO PACU LANI IRELAND Dressing/Packing FT Pre-Care Text: Administers care to wound sites Entry 1 Type Dressing Site and Details Adaptic with bacitracin ointment, 4x4`s (10pk), 3 inch cast padding x2, 3 inch carlos and 3 x 15 Deirdre splints Outcomes Met? Yes Last Modified By: Ariane Fontenot RN 06/28/20 10:37:05 Post-Care Text: The patient is free from signs and symptoms of infection Medication Administration FT Pre-Care Text: Verifies allergies, administers prescribed medications and solutions, administers prescribed antibiotic therapy and immunizing agents as ordered, evaluates response to medications Administers prescribed medications and solutions Entry 1 Route of Admin Field Expiration Date Yes Verified Outcomes Met? Yes Last Modified By: Ariane Fontenot RN 06/28/20 10:37:53 Post-Care Text: The patient received appropriate medication(s) safely administered during the perioperative period For Martinez-Josh please see scanned medication reconcilliation form for medications used at the field during the procedure. Tourniquet FT Pre-Care Text: Implements protective measures to prevent skin/tissue injury due to mechanical sources Entry 1 Tourniquet Type TOURNIQUET CUFF ROYAL Setting 250 mmHg BLUE 30 X 4 [[id number]][F] Placement Right Upper Arm Cuff Size 18 267 Padding Under Cuff Yes Applied By Ariane Fontenot RN Applied Skin Assessment Unremarkable Skin Assessment Unremarkable Before Inflation After Inflation Tourniquet Times Inflated 06/28/20 08:08:00 Deflated 06/28/20 08:13:00 Outcomes Met? Yes Last Modified By: Ariane Fontenot RN 06/28/20 10:39:07 Post-Care Text: The patient is free from signs and symptoms of injury caused by extraneous objects Case Comments Finalized By: Pj Lawrence CST Document Signatures Signed By: Ariane Fontenot RN 06/28/20 10:39 Pj Lawrence CST 07/03/20 09:06 [facility] Coding Summary.on 06-29-2020 Coding Summary. CODING DATE: 021 FINAL [facility] STATUS: Home (Routine DC) PAYOR: [facility] [place] ADMIT DX: REASON FOR VISIT DX: Z01.812 Encounter for preprocedural laboratory examination FINAL DX: PRINCIPAL: Z01.812 Encounter for preprocedural laboratory examination SECONDARY: Z20.828 Contact with and (suspected) exposure to other viral communicable diseases PYMT PROC APC STAT DESCRIPTION DOCTOR NAME DATE NOTE: The code number assigned matches the documented diagnosis and / or procedure in the patient's chart. However, the narrative phrase printed from the coding software may appear abbreviated, or result in slightly different terminology. Coded By: Amber Carlson CphT Date Saved: 06/29/2020 07:37 pm [facility] Consent for Anesthesiaon Consent for Anesthesia [id number]: 127 [facility] Discharge Instructionson Discharge Instructions [id number]#1.00CD: 127 [facility] IntraOperative Documentson 0 06-29-2020 IntraOperative Documents [id number]#1.00CD: 127 [facility] IntraOperative Documents [id number]#1.00CD: 127 [facility] Preoperative Documentson Preoperative Documents [id number]#1.00CD: 127 [facility] Progress Note-Physicianon Progress Note-Physician Patient: BOO MCALLISTER Age: 65 years Sex: Male : 1955 Associated Diagnoses: None Author: Gaurav Amado Jr, DO Preoperative Information Time patient last ate or drank:=== (npo 8 hours) Anesthesia history: Patient history: No prior anesthesia problems. Re-evaluation prior to induction: Completed, Initial evaluation reviewed. Review of Systems Respiratory: No shortness of breath. Cardiovascular: No chest pain. Hematology/Lymphatics: No bruising tendency, No bleeding tendency. Health Status Allergies: Allergic Reactions (All) Severity Not Documented Codeine- Vomit. Current medications: (Selected) Inpatient Medications Ordered Lactated Ringers IV Ally 1000 mL 1,000 mL: 1,000 mL, IV, 80 mL/hr, Routine, Start date 06/28/20 8:00:00 EST, 12.5 hour(s), Total volume (mL): 1,000, 106.6 kg, 2.32, m2 Cisco 5/325 Tab: 1 tab(s), Tab, Oral, q4hr PRN Pain 4-7 for 5 day(s), Stop date 07/03/20 7:59:00 EST, Routine, Start date 06/28/20 8:00:00 EST Zofran 4 mg/2 mL Injection: 4 mg = 2 mL, Injection, IV Push, q4hr PRN Nausea/Vomiting, Routine, Start date 06/28/20 8:00:00 EST Prescriptions Prescribed Ultram 50 mg Tab: 1-2 tab(s), Oral, q4hr, Take 1-2 every 4-6 hours as needed for pain. Dx: G56.02 Duration: 7 days, # 30 tab(s), Refills(s) 0, Pharmacy: [id number], 182, cm, 06/09/20 7:06:00 EST, Height/Length Dosing, 106.6, kg, 06/09/20 7:06:00 EST... Documented Medications Documented Aleve 220 mg oral capsule: 220 mg = 1 cap(s), Oral, q12hr, PRN as needed for pain Cozaar 100 mg Tab: 100 mg = 1 tab(s), Oral, Daily, High blood pressure Effexor XR 75 mg Cap-ER: 75 mg = 1 cap(s), Oral, Daily, Depression Glucophage 500 mg oral tablet: 1,000 mg = 2 tab(s), Oral, BID, Blood glucose Mobic: 7.5 mg, Oral, Daily, Refills(s) 0, Arthritis Prilosec: 20 mg, Oral, Daily, Refills(s) 0, Control of stomach acid Vitamin B Complex oral capsule: 1 cap(s), Oral, Daily, Prophylaxis Vitamin D3 5000 intl units oral tab: 5,000 International_Unit = 1 tab(s), Oral, Daily, Prophylaxis Zetia: 10 mg, Oral, Daily, Refills(s) 0, High cholesterol acetaminophen: 1,000 mg, Oral, q6hr, PRN as needed for pain, Refills(s) 0, Pain atenolol 25 mg Tab: 0.5 tab, Oral, Daily, High blood pressure atorvastatin 40 mg Tab: 40 mg = 1 tab(s), Oral, Daily, High cholesterol fluticasone 0.05 mg/inh Nasal [place]: 1 spray(s), Nasal, Daily, Allergy symptoms glipiZIDE 10 mg ER Tab: 10 mg = 1 tab(s), Oral, BID, Blood glucose loratadine: 10 mg, Oral, Daily, Refills(s) 0, Allergy symptoms simvastatin: 40 mg, Oral, Once a day (at bedtime), Refills(s) 0, High cholesterol Problem list: All Problems Carpal tunnel syndrome / SNOMED CT 81498359 / Confirmed Diabetes / SNOMED CT 946448544 / Confirmed Acid reflux / SNOMED CT 544540844 / Confirmed Smoker / SNOMED CT 287711083 / Confirmed Added secondary to documentation in Social History. Resolved: Depression / SNOMED CT 31341066 Resolved: Hypercholesterolemia / SNOMED CT 04622275 Resolved: HTN (hypertension) / SNOMED CT 2575162675 Histories Past Medical History: No active or resolved past medical history items have been selected or recorded. Family History: No family history items have been selected or recorded. Procedure history: Left Carpal tunnel release ([id number]) on 06/14/[address] - Repair of retinal detachment ([id number]) on 11/19/2018 at 63 Years. LASIK (0857030276). Colonoscopy (937689407). Endoscopy of parathyroid gland (17739914). Cervical spinal fusion of C4 and C5 and C6 (989202311). Internal fixation of bone of clavicle (59557011). Comments: 06/08/2020 9:22 KENYATTA Fonseca RN, Haven screws in 1979 and screws out 1985 Social History Social & Psychosocial Habits Alcohol 06/08/2020 Use: Current Type: Liquor Frequency: 1-2 times per week Substance Abuse 06/08/2020 Risk Assessment: Denies Substance Abuse Tobacco 06/08/2020 Tobacco Use: 10 or more cigarettes (1/ Smokeless tobacco use: Never Type: Cigarettes Previous treatment: None 06/08/2020 Risk Assessment: Medium Risk . Physical Examination VS/Measurements Respiratory: Lungs are clear to auscultation. Cardiovascular: Normal rate, Regular rhythm. Review / Management Results review Interpretation of Outside Results Chest x-ray results Radiology results ECG interpretation Condition Plan [place] [employer]esthesi[employer] (ASA) physical status classification: Class III. Anesthetic Preoperative Plan Anesthesia: General. . Anesthetic plan, risks, benefits, and alternatives discussed with the patient and/or family. Risks discussed: nausea, vomiting, headache, sore throat, dental injury, serious complications. Patient verbalized understanding. Communication: face to face with (patient 5 minutes, Pt educated on the importance of smoking cessation.). Normal [facility] Comment on above: Result Comment: Elec tronically Signed By: Gaurav Amado Jr, DO\.br\Date and Time Signed: 06/29/20 15:32 EST Capillary Glucose POCon 06-19 Glucose [Mass/Vol] 155 mg/dL High 55-99 [facility] Comment on above: Result Comment: Shira petit Meter Performed By: #### 2 [id number] #### [facility] Laboratory [address] [place] [address] H&P Updateon 06-28-2020 H&P Update [id number] :127 Normal [facility] Inpatient Patient Summaryon 06-28-2020 Inpatient Patient Summary [address] [address] [facility] Clinical Discharge Instructions PERSON INFORMATION Name: BOO MCALLISTER [facility]#:[id number] PHYSICIANS Admitting Physician: Deion Andres DO Attending Physician: Deion Andres DO PCP: JAMILAH RADFORD MD Discharge Diagnosis: Comment: PATIENT EDUCATION INFORMATION Instructions: Post Op Patient Instructions - FT (CUSTOM); [place] - Home Care Instructions (Custom) Medication Leaflets: Follow up: With: Address: When: Deion Andres [address] [place], [place] [id number] [facility] (1) 07/11/2020 1:15 PM MEDICATION LIST Medications to Continue with No Changes Other Medications acetaminophen 1,000 Milligram By Mouth every 6 hours as needed as needed for pain. atenolol (atenolol 25 mg Tab) 0.5 tab By Mouth every day. atorvastatin (atorvastatin 40 mg Tab) 1 Tablets By Mouth every day. cholecalciferol (Vitamin D3 5000 intl units oral tab) 1 Tablets By Mouth every day. ezetimibe (Zetia) 10 Milligram By Mouth every day. fluticasone nasal (fluticasone 0.05 mg/inh Nasal [place]) 1 Sprays Nasal Inhalation every day as needed Allergy symptoms. glipiZIDE (glipiZIDE 10 mg ER Tab) 1 Tablets By Mouth 2 times a day. loratadine 10 Milligram By Mouth every day. losartan (Cozaar 100 mg Tab) 1 Tablets By Mouth every day. meloxicam (Mobic) 7.5 Milligram By Mouth every day. metformin (Glucophage 500 mg oral tablet) 2 Tablets By Mouth 2 times a day. multivitamin (Vitamin B Complex oral capsule) 1 Capsules By Mouth every day. naproxen (Aleve 220 mg oral capsule) 1 Capsules By Mouth every 12 hours as needed as needed for pain. omeprazole (Prilosec) 20 Milligram By Mouth every day. simvastatin 40 Milligram By Mouth once a day (at bedtime). tramadol (Ultram 50 mg Tab) 1-2 tab(s) By Mouth every 4 hours. Take 1-2 every 4-6 hours as needed for pain. Dx: G56.02 Duration: 7 days. Refills: 0. venlafaxine (Effexor XR 75 mg Cap-ER) 1 Capsules By Mouth every day. Comment: Tomi Juan [facility] Main OR PACU I Recordon 06-19 Main OR PACU I Record PACU Phase I Document Type FT Summary Primary Physician: Deion Andres DO Finalized Date/Time: 06/28/20 18:31:27 Pt. Name: IAINBOO./Sex: 1955 Male Med Rec #: [id number] Physician: Deion Andres DO Financial #: [id number] Pt. Type: A Room/Bed: AS03/ Admit/Disch: 06/28/20 06:01:55 - Institution: Case Times PACU I FT Pre-Care Text: Identifies barriers to communication and implements measures to provide psychological support Develops individualized plan of care, and ensures continuity of care Maintains patient's dignity and privacy, and maintains patient confidentiality Identifies and reports philosophical, cultural, and spiritual beliefs and values Identifies individual values and wishes concerning care Implements aseptic technique, and administers prescribed antibiotic therapy and immunizing agents as ordered Evaluates postoperative tissue perfusion Implements thermoregulation measures, and monitors body temperature Evaluates postoperative respiratory status Evaluates postoperative cardiac status Evaluates postoperative neurological status Assesses pain control, collaborated in initiating patient-controlled analgesia and implements alternative methods of pain control Verifies allergies, administers prescribed medications and solutions, evaluates response to medications Entry 1 In PACU I 06/28/20 08:19:00 Discharge from PACU 06/28/20 08:49:00 I Outcomes Met? Yes Last Modified By: Erin Nuñez RN 06/28/20 18:31:19 Post-Care Text: The patient demonstrates knowledge of the expected response to the operative or invasive procedure The patient's care is consistent with the individualized perioperative plan of care The patient's right to privacy is maintained The patient's value system, lifestyle, ethnicity, and culture are considered, respected, and incorporated into the perioperative plan of care The patient participates in decisions affecting his or her perioperative plan of care The patient is free from signs and symptoms of infection The patient has wound/tissue perfusion consistent with or improved from baseline levels established preoperatively The patient is at or returning to normothermia at the conclusion of the immediate postoperative period The patient's respiratory function is consistent with or improved from baseline levels established preoperatively The patient's cardiovascular status is consistent with or improved from baseline levels established preoperatively The patient's cardiovascular status is consistent with or improved from baseline levels established preoperatively The patient demonstrates and/or reports adequate pain control throughout the perioperative period The patient received appropriate medication(s), safely administered during the perioperative period Acuity Level PACU I FT Entry 1 Start Time 06/28/20 08:19:00 Stop Time 06/28/20 08:49:00 Acuity Level Acuity Level I Last Modified By: Erin Nuñez RN 06/28/20 18:31:26 Finalized By: Erin Nuñez RN Document Signatures Signed By: Erin Nuñez RN 06/28/20 18:31 Normal [facility] Main OR Preoperative Recordo n 06-28-2020 Main OR Preoperative Record PreOp Document Type FT Summary Primary Physician: Deoin Andres DO Finalized Date/Time: 06/28/20 10:39:38 Pt. Name: BOO MCALLISTER/Sex: 1955 Male Med Rec #: [id number] Physician: Deion Andres DO Financial #: [id number] Pt. Type: A Room/Bed: [facility]/ Admit/Disch: 06/28/20 06:01:55 - Institution: Case Times PreOp FT Pre-Care Text: Verifies consent for planned procedure, identifies individual values and wishes concerning care, includes family members in perioperative teaching Entry 1 Patient Times. In Pre Surgery 06/28/20 06:00:00 Out Pre Surgery 06/28/20 07:50:00 Outcomes Met? Yes Last Modified By: Ariane Fontenot RN 06/28/20 10:39:36 Post-Care Text: The patient participates in decisions affecting his or her perioperative plan of care Finalized By: Ariane Fontenot RN Document Signatures Signed By: Ariane Fontenot RN 06/28/20 10:39 Normal [facility] Monitor Recordon 06-28-2020 Monitor Record [id number] :127 Normal [facility] Operative Reporton Operative Report Date of Surgery: 06/28/2020 SURGEON: Deion Andres D.O. PREOPERATIVE DIAGNOSIS: Right wrist median neuropathy, carpal tunnel syndrome POSTOPERATIVE DIAGNOSIS: Right wrist median neuropathy, carpal tunnel syndrome OPERATION: Right wrist release transverse carpal ligament with short-arm splint application, static in nature ANESTHESIA: General ANESTHESIOLOGIST: Cas May CRNA ESTIMATED BLOOD LOSS: None SPECIMEN: None COMPLICATIONS: None IMPLANTS: None HISTORY/OPERATIVE INDICATIONS: The patient is a 65-year-old white male who presents complaining of persistent paresthesias, dysesthesias about the median nerve distribution of the right wrist. The patient has failed conservative care. The patient has had appropriate neurodiagnostic testing to identify the etiology. The patient does appear to be clinically indicated/cost effective for the above procedure and the procedure undertaken this day. INTRAOPERATIVE PATHOLOGY: Upon dissection of the right carpal tunnel from the standard open palmar approach, there is noted to be again a deep lie to the carpal tunnel with a thickened transverse carpal ligament. The ligament itself is released without event. There is no evidence of significant nerve pathology identified, no flattening, hyperemia or ischemia. Of note, the sutures of the contralateral left carpal tunnel release were removed by nursing during the procedure here today. PROCEDURE: After informed consent is obtained, the risks, complications, reasonable expectations of the above procedure are discussed at length. The patient is taken to the Operative Suite, placed on the operating room table in supine position. At this point, the patient is given a general anesthetic. A well-padded tourniquet is applied to the right arm. Hand, wrist, forearm are sterilely prepped and draped in the usual surgical fashion at which time, the site verification process is undertaken with a time-out procedure. The limb is exsanguinated with an Esmarch. Tourniquet inflated to 250 mmHg. The standard open palmar approach is utilized. A 2.5 cm incision is made overlying the volar aspect of the wrist area. Dissection is carried sharply through skin with careful attention to all bleeding vessels which were electrocauterized. Dissection is carried down onto the level of the transverse carpal ligament. This area is fully delineated, incised sharply with a 6400 [place] blade. Full decompression is realized with small tenotomy scissors. The nerve is visually inspected, is not manipulated. The area is thoroughly irrigated and closed primarily with 5-0 nylon. The wound is injected with several cc of 0.25% Marcaine plain. The wound is dressed with Bacitracin, Adaptic, sterile 4x4, sterile web roll. A well-padded, well-molded Ortho-Glass static short-arm splint is then applied, overdressed with further web roll and an CARLOS wrap. The patient is subsequently extubated, transferred to the [facility] and taken to the Post Anesthesia Care Unit in stable condition. The patient will be discharged this day. Deion Andres D.O. gls Dictated: 06/28/2020 #[id number] Typed: 06/28/2020 #[id number] cc: Esther Larkin D.O. [facility] Comment on above: Result Comment: Elec tronically Signed By: Deion Andres DO\.br\Date and Time Signed: 06/28/20 11:37 EST Outpatient Surgery Discharge Instructionon 06-28-2020 Outpatient Surgery Discharge Instruction [place] [id number] Patient Discharge Instructions PERSON INFORMATION Name: BOO MCALLISTER Date of : 1955 Current Date: 06/28/2020 08:09:35 PHYSICIANS Admitting Physician: Deion Andres DO Discharge Diagnosis: BOO MCALLISTER has been given the following list of follow-up instructions, prescriptions, and patient education materials: IF UNABLE TO CONTACT YOUR PHYSICIAN AND YOU FEEL IT IS AN EMERGENCY, GO TO THE NEAREST EMERGENCY ROOM OR CALL 911 IIAIN JEFFREY A, have received the attached patient education materials/instructions and have verbalized understanding: May we do a follow up call? Yes No I was present when discharge instructions were given Patient Signature Date Clinican/Nurse Signature Date Follow up: With: Address: When: Deion Andres [address] [place] [id number] Business (1) 07/11/2020 1:15 PM Pharmacy Information: Other: [facility] You may receive a survey from [employer] asking you to rate your care experience. Your feedback is important and will help us understand what we do well and how we can improve the quality of care we provide to you, your loved ones and our community. It?s an honor to serve you. Thank you for choosing [facility] HERE ARE THE MEDICATION CHANGES THAT OCCURRED DURING YOUR HOSPITAL STAY Medications to Continue with No Changes Other Medications acetaminophen 1,000 Milligram By Mouth every 6 hours as needed as needed for pain. atenolol (atenolol 25 mg Tab) 0.5 tab By Mouth every day. atorvastatin (atorvastatin 40 mg Tab) 1 Tablets By Mouth every day. cholecalciferol (Vitamin D3 5000 intl units oral tab) 1 Tablets By Mouth every day. ezetimibe (Zetia) 10 Milligram By Mouth every day. fluticasone nasal (fluticasone 0.05 mg/inh Nasal [place]) 1 Sprays Nasal Inhalation every day as needed Allergy symptoms. glipiZIDE (glipiZIDE 10 mg ER Tab) 1 Tablets By Mouth 2 times a day. loratadine 10 Milligram By Mouth every day. losartan (Cozaar 100 mg Tab) 1 Tablets By Mouth every day. meloxicam (Mobic) 7.5 Milligram By Mouth every day. metformin (Glucophage 500 mg oral tablet) 2 Tablets By Mouth 2 times a day. multivitamin (Vitamin B Complex oral capsule) 1 Capsules By Mouth every day. naproxen (Aleve 220 mg oral capsule) 1 Capsules By Mouth every 12 hours as needed as needed for pain. omeprazole (Prilosec) 20 Milligram By Mouth every day. simvastatin 40 Milligram By Mouth once a day (at bedtime). tramadol (Ultram 50 mg Tab) 1-2 tab(s) By Mouth every 4 hours. Take 1-2 every 4-6 hours as needed for pain. Dx: G56.02 Duration: 7 days. Refills: 0. venlafaxine (Effexor XR 75 mg Cap-ER) 1 Capsules By Mouth every day. PATIENT EDUCATION INFORMATION Instructions: [place], [place] [facility] OUTPATIENT SURGERY Home Care Instructions Medications You will be given a prescription for pain medication. Please notify the office immediately if you have any allergies to pain medications. About Your Surgical Site Remove the dressing in ___5__ days and begin daily dressing changes. Apply Betadine Liquid to the operative site and apply a dry sterile dressing or band-aid once or twice daily. Do not get the incision wet until suture removal. Activity You may gradually progress your activities as comfortably tolerated. Continue to ice and elevate your surgical site for the next 48 hours and continue restricted use. Remain off work until your first office visit. Diet You may resume your regular diet as tolerated. Please remember to take your pain medication with food to avoid stomach upset. Increased liquid intake is encouraged for 48 hours after discharged home. Anesthesia Precautions Do not operate a vehicle (automobile, bicycle, motorcycle), machinery or power tools, or drink alcohol beverages for 24 hours. Do not drink any alcohol beverages while you are taking your pain medication. Arrange for a responsible adult to remain with you for at least 24 hours, possibly longer. You may be drowsy and light-headed from the anesthesia and possibly from your pain medication as well. Expectations of Surgery You may have mild to moderate discomfort for the first several days. This should gradually decrease. Any increased discomfort should be reported to the office. Call the office with any of the following: any persistent or heavy bleeding, temperature above 101.5 degrees, increasing redness, swelling or drainage at the operative site, severe and increasing pain at the operative site, persistent vomiting. About your follow-up office visit You will be given a card with your post-operative date and time for this appointment. Report any problems prior to that time. Driving: Driving is legal, but you must be able to maintain control of your car at all times. 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 It is therefore advised not to drive until after your first office visit following surgery. ___ Deion Andres DO [facility] [address] [place] [id number] Reviewed: 08-24 Normal [facility] Patient Education - Texton 0 06-28-2020 Patient Education - Text [place] [facility] OUTPATIENT SURGERY Home Care Instructions Medications You will be given a prescription for pain medication. Please notify the office immediately if you have any allergies to pain medications. About Your Surgical Site Remove the dressing in ___5__ days and begin daily dressing changes. Apply Betadine Liquid to the operative site and apply a dry sterile dressing or band-aid once or twice daily. Do not get the incision wet until suture removal. Activity You may gradually progress your activities as comfortably tolerated. Continue to ice and elevate your surgical site for the next 48 hours and continue restricted use. Remain off work until your first office visit. Diet You may resume your regular diet as tolerated. Please remember to take your pain medication with food to avoid stomach upset. Increased liquid intake is encouraged for 48 hours after discharged home. Anesthesia Precautions Do not operate a vehicle (automobile, bicycle, motorcycle), machinery or power tools, or drink alcohol beverages for 24 hours. Do not drink any alcohol beverages while you are taking your pain medication. Arrange for a responsible adult to remain with you for at least 24 hours, possibly longer. You may be drowsy and light-headed from the anesthesia and possibly from your pain medication as well. Expectations of Surgery You may have mild to moderate discomfort for the first several days. This should gradually decrease. Any increased discomfort should be reported to the office. Call the office with any of the following: any persistent or heavy bleeding, temperature above 101.5 degrees, increasing redness, swelling or drainage at the operative site, severe and increasing pain at the operative site, persistent vomiting. About your follow-up office visit You will be given a card with your post-operative date and time for this appointment. Report any problems prior to that time. Driving: Driving is legal, but you must be able to maintain control of your car at all times. 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 It is therefore advised not to drive until after your first office visit following surgery. ___ Deion Andres DO [facility] [address] [place] [address] Reviewed: 08-24 [facility] Progress Note-Physicianon Progress Note-Physician Patient: BOO MCALLISTER Age: 65 years Sex: Male : 1955 Associated Diagnoses: None Author: Deion Andres DO Postoperative Information Procedure: R CTR/splint Preoperative Diagnosis: R CTS. Postoperative Diagnosis: same. Performed by: lauro. Specimens Removed: none. Estimated Blood Loss: 0 ml. Complications: None. [facility] Comment on above: Result Comment: Elec tronically Signed By: Deion Andres DO\.br\Date and Time Signed: 06/28/20 08:23 EST Consent for Procedure/Surger yon 06-23-2020 Consent for Procedure/Surgery [id number] :127 Normal [facility] History and Physicalon 06-23 History and Physical [id number] :127 Normal [facility] IntraOperative Documentson 0 06-23-2020 IntraOperative Documents [id number] :127 Normal [facility] Priority Order-Musa 2020 Priority Order-STAT Comment Duarte vuong [facility] Comment on above: Result Comment: Rece ived Performed at: [employer] [facility] [address] [facility] [place] [id number] MD Christine London Performed By: #### S ARS-CoV-2, DENEEN, [id number] ####[facility] [address] [place] [address] SARS-CoV-2, NAAon 06-22-2020 SARS CORONAVIRUS 2 RNA:PRTHR:PT:RESPIR ATORY:ORD:PROBE.AMP .TAR Not Detected Not Detected [facility] Comment on above: Result Comment: This nucleic acid amplification test was developed and its performance characteristics determined by [employer]. Nucleic acid amplification tests include RT-PCR and TMA. This test has not been FDA cleared or approved. This test has been authorized by FDA under an Emergency Use Authorization (EUA). This test is only authorized for the duration of time the declaration that circumstances exist justifying the authorization of the emergency use of in vitro diagnostic tests for detection of SARS-CoV-2 virus and/or diagnosis of COVID-19 infection under section 564(b)(1) of the Act, 21 U.S.C. 360bbb-3(b) (1), unless the authorization is terminated or revoked sooner. When diagnostic testing is negative, the possibility of a false negative result should be considered in the context of a patient's recent exposures and the presence of clinical signs and symptoms consistent with COVID-19. An individual without symptoms of COVID-19 and who is not shedding SARS-CoV-2 virus would expect to have a negative (not detected) result in this assay. Performed at: [facility] [address] [facility] [place] [id number] MD Christine London Performed By: #### S ARS-CoV-2, DENEEN, [id number] ####[facility] [address] [place] [address] Coding Summary.on 06-20-2020 Coding Summary. CODING DATE: 021 FINAL [facility] STATUS: Home (Routine DC) PAYOR: [facility] [place] APC DESCRIPTION 5431 Level 1 Nerve Procedures ADMIT DX: REASON FOR VISIT DX: G56.03 Carpal tunnel syndrome, bilateral upper limbs FINAL DX: PRINCIPAL: G56.03 Carpal tunnel syndrome, bilateral upper limbs SECONDARY: I10 Essential (primary) hypertension E11.9 Type 2 diabetes mellitus without complications K21.9 Gastro-esophageal reflux disease without esophagitis E78.00 Pure hypercholesterolemia, unspecified F32.9 Major depressive disorder, single episode, unspecified F17.210 Nicotine dependence, cigarettes, uncomplicated PYMT PROC APC STAT DESCRIPTION DOCTOR NAME DATE 40589 5435 J1 Neuroplasty and/or Deion Andres DO 06/14/2020 transposition; median nerve at carpal tunnel LT Left side (used to identify procedures performed on the left side of the body) [address] Anesthesia for all Luis Fernando Dalton Jr., DO 06/14/2020 procedures on nerves, muscles, tendons, fascia, and bursae of forearm, wrist, and hand NOTE: The code number assigned matches the documented diagnosis and / or procedure in the patient's chart. However, the narrative phrase printed from the coding software may appear abbreviated, or result in slightly different terminology. Revised Coded By: Kim Sagastume Revised Date Saved: 06/20/2020 09:45 am Normal [facility] Main OR Intraoperative Recor don 06-20-2020 Main OR Intraoperative Record IntraOp Document Type FT Summary Primary Physician: Deion Andres DO Finalized Date/Time: 06/20/20 14:41:26 Pt. Name: BOO MCALLISTER./Sex: 1955 Male Med Rec #: [id number] Physician: Deion Andres DO Financial #: [id number] Pt. Type: A Room/Bed: [place] [address] Admit/Disch: 06/14/20 06:00:21 - 06/14/20 09:40:00 Institution: Case Times FT Entry 1 Patient Times In Room 06/14/20 07:15:00 Out Room 06/14/20 07:43:00 Procedure Times Start 06/14/20 07:28:00 Stop 06/14/20 07:39:00 Anesthesia Times Start 06/14/20 07:15:00 Stop 06/14/20 07:43:00 Last Modified By: Po IRELAND, Ariane Oakes 06/14/20 07:46:28 General Comments: 06/20/20 - chart logged and finalized for charges. Yamil Maynard, MSN, RN Case Attendance FT Entry 1 Entry 2 Entry 3 Case Attendee Larisa Pickard DO, David A Crosby RN, Marta Jean-Baptiste Role Performed Anesthesiologist Surgeon - Primary Water Taxi Captain - Primary Predictive Maintenance Specialist Time In 06/14/20 07:15:00 06/14/20 07:15:00 06/14/20 07:15:00 Time Out 06/14/20 07:43:00 06/14/20 07:43:00 06/14/20 07:32:00 Procedure CARPAL TUNNEL CARPAL TUNNEL CARPAL TUNNEL RELEASE(Left) RELEASE(Left) RELEASE(Left) Comments Dr Dalton supervising Last Modified By: Po IRELAND, Ariane Fontenot RN, Ariane Richter RN 06/14/20 12:00:25 06/14/20 07:47:10 06/14/20 07:47:10 Entry 4 Entry 5 Entry 6 Case Attendee Po IRELAND, Marilou Acuña RN, CNOR, Diana Role Performed Water Taxi Captain - Primary Scrub - Primary Water Taxi Captain - Relief Time In 06/14/20 07:15:00 06/14/20 07:15:00 06/14/20 07:30:00 Time Out 06/14/20 07:43:00 06/14/20 07:43:00 06/14/20 07:43:00 Procedure CARPAL TUNNEL CARPAL TUNNEL CARPAL TUNNEL RELEASE(Left) RELEASE(Left) RELEASE(Left) Comments OLMAN Nolan CREWMAN MAIN BATTLE TANK STUDENT, ALSO SCRUBBED IN AT FIELD Last Modified By: Ariane Fontenot RN, RN, Jennifer P Chapin RN, Jennifer P 06/14/20 07:47:10 06/14/20 14:09:15 06/14/20 07:47:10 Perioperative Protocols FT Pre-Care Text: Implements protective measures prior to operative or invasive procedure, confirms identity before the operative or invasive procedure, verifies operative procedure, surgical site, and laterality Entry 1 Procedure(s) CARPAL TUNNEL Patient Identity Birthday, ID Band RELEASE(Left) Verified (select at Check, Patient least 2): Participation Consents / H and P Anesthesia Consent, Operative Site Present Verified HandP, Surgery/Procedure Marking Verified Consent Surgical Site Yes Laterality Verified Yes Verified Procedure Verified Yes Correct Patient Yes Position Verified Availability Equipment, Medication Prep Dry Yes Verified (If Applicable) PreOp Antibiotic No Time Out Larisa Pickard, Given Participants Avel IRELAND, Po Mccoy RN, Ángel Arriaza Gwen E, Deion Andres DO Time Out Complete 06/14/20 07:28:00 Outcomes Met? Yes Last Modified By: Ariane Fontenot RN 06/14/20 07:47:22 Post-Care Text: The patient is free from signs and symptoms of injury caused by extraneous objects Allergy Information FT Pre-Care Text: Verifies allergies Entry 1 Allergies Reviewed? Yes Allergies Reviewed Self/Patient With Outcomes Met? Yes Last Modified By: Ariane Fontenot RN 06/14/20 07:12:40 Post-Care Text: The patient received appropriate medication(s) safely administered during the perioperative period Surgical Procedures FT Entry 1 Procedure Description Procedure CARPAL TUNNEL RELEASE Modifiers Left Surgeon Description LEFT CARPAL TUNNEL RELEASE Primary Procedure Yes Primary Surgeon Deion Andres DO Start 06/14/20 07:28:00 Stop 06/14/20 07:39:00 Anesthesia Type General Surgical Service Orthopedics Wound Class 1 - Clean Last Modified By: Ariane Fontenot RN 06/14/20 07:47:29 General Case Data FT Pre-Care Text: Classifies surgical wound, implements aseptic technique, initiates traffic control Entry 1 Case Information OR OR 5 FT Case Level Level 2 Wound Class 1 - Clean Specialty Orthopedics ASA Class 3 Preop Diagnosis CARPAL TUNNEL SYNDROME Postop Same As Preop Yes LEFT Postop Diagnosis CARPAL TUNNEL SYNDROME Outcomes Met? Yes LEFT Last Modified By: Ariane Fontenot RN 06/14/20 07:36:16 Post-Care Text: The patient is free from signs and symptoms of infection Skin Assessment (Pre Procedure) FT Pre-Care Text: Implements protective measures to prevent skin/ tissue injury due to thermal or mechanical sources Evaluates for signs and symptoms of physical injury to skin and tissue Entry 1 Skin Integrity Intact, [place], Warm, and Skin Abnormality No Dry Outcomes Met? Yes Last Modified By: Ariane Fontenot RN 06/14/20 07:13:04 Post-Care Text: The patient is free from signs and symptoms of injury caused by extraneous objects Patient Positioning FT Pre-Care Text: Identifies physical alterations that require additional precautions for procedure-specific positioning, verifies presence of prosthetics or corrective devices, positions the patient, evaluates the patient for signs and symptoms of injury as a result of positioning Entry 1 Procedure CARPAL TUNNEL Body Position Supine RELEASE(Left) Feet Uncrossed? Yes Left Arm Position Extended on Hand Table Right Arm Position Extended on Padded Arm Left Leg Position Extended Board Right Leg Position Extended Positioning Device Safety Strap, Pillow Under Head Large Press Points Checked Yes By Avel IRELAND, Dave Mccoy Carly C, Ariane Fontenot RN Outcomes Met? Yes Last Modified By: Ariane Fontenot RN 06/14/20 07:13:32 Post-Care Text: The patient is free from signs and symptoms of injury related to positioning Patient Care Devices FT Pre-Care Text: Implements protective measures to prevent skin/ tissue injury due to thermal or mechanical sources Entry 1 Entry 2 Entry 3 Equipment Type HAND TABLE [F] MONITOR CHARGE SURGERY TOURNIQUET MAGDA [F] [F] Equipment Number A Equipment Setting Outcomes Met? Yes Yes Yes Last Modified By: Ariane Fontenot RN, RN, Jennifer P Chapin RN, Jennifer P 06/14/20 07:14:11 06/14/20 07:14:11 06/14/20 07:14:11 Post-Care Text: The patient is free from signs and symptoms of injury caused by extraneous objects Transport To OR FT Pre-Care Text: Transports according to individual needs. Evaluates for signs and symptoms of skin and tissue injury as a result of transfer or transport Entry 1 Via Cart By Marta Vallecillo RN Safety Precautions Side Rails Up Outcomes Met? Yes Last Modified By: Ariane Fontenot RN 06/14/20 07:14:21 Post-Care Text: The patient is free from signs and symptoms of injury related to transfer/transport Counts Verification FT Pre-Care Text: Performs required counts Entry 1 Entry 2 Procedure(s) CARPAL TUNNEL CARPAL TUNNEL RELEASE(Left) RELEASE(Left) Type Initial Final Items Sponges, Sharps Sponges, Sharps Status Correct Correct Time 06/14/20 07:35:00 By Marilou Neal, Ariane Fontenot RN, Crosby RN, Amy J Churchill, Gwen E Outcomes Met? Yes Yes Last Modified By: Ariane Fontenot RN, RN, Jennifer P 06/14/20 07:35:38 06/14/20 07:35:38 Post-Care Text: The patient is free from signs and symptoms of injury caused by extraneous objects Skin Prep FT Pre-Care Text: Performs skin preparations Entry 1 Procedure CARPAL TUNNEL Prep Area left hand, wrist, RELEASE(Left) entire left arm to tourniquet Prep Agents Chloraprep/Dry Prior to Start Dry Time 06/14/20 07:24:00 Draping Stop Dry Time 06/14/20 07:27:00 Hair Removal Methods Not Indicated By Ariane Fontenot RN Outcomes Met? Yes Last Modified By: Marta Vallecillo RN 06/14/20 14:31:39 Post-Care Text: The patient is free from signs and symptoms of infection Departure From OR FT Pre-Care Text: Transports according to individual needs. Evaluates for signs and symptoms of skin and tissue injury as a result of transfer or transport. Entry 1 Via Cart Safety Precautions Side Rails Up PostOp Destination PACU Transported By Ariane Fontenot RN Patient Status Stable Skin. Condition Intact, [place], Warm, and Dry Airway Maintenance Oxygen in Use? Yes Airway Device Simple Mask Flow Rate 8 L/min Outcomes Met? Yes Last Modified By: Ariane Fontenot RN 06/14/20 07:30:27 Post-Care Text: The patient is free from signs and symptoms of injury related to transfer/transport General Comments: Report given to PACU JChapin Dressing/Packing FT Pre-Care Text: Administers care to wound sites Entry 1 Type Dressing Site and Details Adaptic with bacitracin ointment, 4x4`s (10pk), 3 inch cast padding x2, 3 inch carlos and 3 x 15 Deirdre splints Outcomes Met? Yes Last Modified By: Ariane Fontenot RN 06/14/20 07:31:10 Post-Care Text: The patient is free from signs and symptoms of infection Medication Administration FT Pre-Care Text: Verifies allergies, administers prescribed medications and solutions, administers prescribed antibiotic therapy and immunizing agents as ordered, evaluates response to medications Administers prescribed medications and solutions Entry 1 Route of Admin Field Expiration Date Yes Verified Outcomes Met? Yes Last Modified By: Ariane Fontenot RN 06/14/20 07:31:19 Post-Care Text: The patient received appropriate medication(s) safely administered during the perioperative period For Martinez-Josh please see scanned medication reconcilliation form for medications used at the field during the procedure. Tourniquet FT Pre-Care Text: Implements protective measures to prevent skin/tissue injury due to mechanical sources Entry 1 Tourniquet Type TOURNIQUET CUFF RED 18 Setting 250 mmHg X 4 [2102-941-016][F] Placement Left Forearm Cuff Size 18 267 Padding Under Cuff Yes Applied By Marta Vallecillo RN Applied Skin Assessment Unremarkable Skin Assessment Unremarkable Before Inflation After Inflation Tourniquet Times Inflated 06/14/20 07:29:00 Deflated 06/14/20 07:38:00 Total Time 9 minute(s) Outcomes Met? Yes Last Modified By: Marta Vallecillo RN 06/14/20 14:32:16 Post-Care Text: The patient is free from signs and symptoms of injury caused by extraneous objects Case Comments Finalized By: SHAMIR Maynard RN, Andrea Document Signatures Signed By: Ariane Fontenot RN 06/14/20 07:47 Ariane Fontenot RN 06/14/20 12:00 Marta Vallecillo RN 06/14/20 14:32 Ariane Fontenot RN 06/14/20 14:09 SHAMIR Maynard RN, Andrea 06/20/20 14:41 [facility] Postoperative Documentson Postoperative Documents [id number]#1.00CD: 127 [facility] Coding Summary.on 06-15-2020 Coding Summary. CODING DATE: 021 FINAL [facility] STATUS: Home (Routine DC) PAYOR: [facility] [place] ADMIT DX: REASON FOR VISIT DX: Z01.812 Encounter for preprocedural laboratory examination FINAL DX: PRINCIPAL: Z01.812 Encounter for preprocedural laboratory examination SECONDARY: Z20.828 Contact with and (suspected) exposure to other viral communicable diseases PYMT PROC APC STAT DESCRIPTION DOCTOR NAME DATE NOTE: The code number assigned matches the documented diagnosis and / or procedure in the patient's chart. However, the narrative phrase printed from the coding software may appear abbreviated, or result in slightly different terminology. Coded By: Amber Carlson CphT Date Saved: 06/15/2020 05:23 pm [facility] Consent for Anesthesiaon Consent for Anesthesia [id number]#1.00CD:1 27 [facility] Discharge Instructionson Discharge Instructions [id number]#1.00CD:1 27 [facility] IntraOperative Documentson 0 06-15-2020 IntraOperative Documents [id number]#1.00CD:1 27 [facility] IntraOperative Documents [id number]#1.00CD:1 27 [facility] Preoperative Documentson Preoperative Documents [id number]#1.00CD:1 27 [facility] Preoperative Documents [id number]#1.00CD:1 27 [facility] Capillary Glucose POCon 05-20 Glucose [Mass/Vol] 138 mg/dL High 55-99 [facility] Comment on above: Result Comment: Shira damaso Meter Performed By: #### 2 [id number] ####[facility] [address] [place] [address] Consent for Treatmenton 05-20 Consent for Treatment [id number]#1.00CD: 127 Normal [facility] H&P Updateon 06-14-2020 H&P Update [id number]#1.00CD: 127 Normal [facility] Inpatient Patient Summaryon 06-14-2020 Inpatient Patient Summary [place] [id number] [facility] Clinical Discharge Instructions PERSON INFORMATION Name: BOO MCALLISTER PHYSICIANS Admitting Physician: Deion Andres DO Attending Physician: Deion Andres DO PCP: JAMILAH RADFORD MD Discharge Diagnosis: Comment: PATIENT EDUCATION INFORMATION Instructions: Post Op Patient Instructions - FT (CUSTOM); [place] - Home Care Instructions (Custom) Medication Leaflets: Follow up: Type Location Start [facility] Surgery PAT COVID Testing [facility] 06/21/2020 8:15 AM 06/21/2020 8:30 AM Confirmed Surgery FT [facility] 06/28/2020 8:00 AM 06/28/2020 8:25 AM Confirmed MEDICATION LIST New Medications [facility] #[id number], [address] [place], [place] [id number], [phone] tramadol (Ultram 50 mg Tab) 1-2 tab(s) By Mouth every 4 hours. Take 1-2 every 4-6 hours as needed for pain. Dx: G56.02 Duration: 7 days. Refills: 0. Medications to Continue with No Changes Other Medications acetaminophen 1,000 Milligram By Mouth every 6 hours as needed as needed for pain. atenolol (atenolol 25 mg Tab) 0.5 tab By Mouth every day. atorvastatin (atorvastatin 40 mg Tab) 1 Tablets By Mouth every day. cholecalciferol (Vitamin D3 5000 intl units oral tab) 1 Tablets By Mouth every day. ezetimibe (Zetia) 10 Milligram By Mouth every day. fluticasone nasal (fluticasone 0.05 mg/inh Nasal [place]) 1 Sprays Nasal Inhalation every day. glipiZIDE (glipiZIDE 10 mg ER Tab) 1 Tablets By Mouth 2 times a day. loratadine 10 Milligram By Mouth every day. losartan (Cozaar 100 mg Tab) 1 Tablets By Mouth every day. meloxicam (Mobic) 7.5 Milligram By Mouth every day. metformin (Glucophage 500 mg oral tablet) 2 Tablets By Mouth 2 times a day. multivitamin (Vitamin B Complex oral capsule) 1 Capsules By Mouth every day. naproxen (Aleve 220 mg oral capsule) 1 Capsules By Mouth every 12 hours as needed as needed for pain. omeprazole (Prilosec) 20 Milligram By Mouth every day. simvastatin 40 Milligram By Mouth once a day (at bedtime). venlafaxine (Effexor XR 75 mg Cap-ER) 1 Capsules By Mouth every day. Comment: Normal [facility] Main OR PACU I Recordon 05-20 Main OR PACU I Record PACU Phase I Document Type FT Summary Primary Physician: Deion Andres DO Finalized Date/Time: 06/14/20 08:10:34 Pt. Name: BOO MCALLISTER/Sex: 1955 Male Med Rec #: [id number] Physician: Deion Andrse DO Financial #: [id number] Pt. Type: A Room/Bed: Admit/Disch: 06/14/20 06:00:21 - Institution: Case Times PACU I FT Pre-Care Text: Identifies barriers to communication and implements measures to provide psychological support Develops individualized plan of care, and ensures continuity of care Maintains patient's dignity and privacy, and maintains patient confidentiality Identifies and reports philosophical, cultural, and spiritual beliefs and values Identifies individual values and wishes concerning care Implements aseptic technique, and administers prescribed antibiotic therapy and immunizing agents as ordered Evaluates postoperative tissue perfusion Implements thermoregulation measures, and monitors body temperature Evaluates postoperative respiratory status Evaluates postoperative cardiac status Evaluates postoperative neurological status Assesses pain control, collaborated in initiating patient-controlled analgesia and implements alternative methods of pain control Verifies allergies, administers prescribed medications and solutions, evaluates response to medications Entry 1 In PACU I 06/14/20 07:44:00 Discharge from PACU 06/14/20 08:14:00 I Outcomes Met? Yes Last Modified By: Ruth Hare RN 06/14/20 08:10:04 Post-Care Text: The patient demonstrates knowledge of the expected response to the operative or invasive procedure The patient's care is consistent with the individualized perioperative plan of care The patient's right to privacy is maintained The patient's value system, lifestyle, ethnicity, and culture are considered, respected, and incorporated into the perioperative plan of care The patient participates in decisions affecting his or her perioperative plan of care The patient is free from signs and symptoms of infection The patient has wound/tissue perfusion consistent with or improved from baseline levels established preoperatively The patient is at or returning to normothermia at the conclusion of the immediate postoperative period The patient's respiratory function is consistent with or improved from baseline levels established preoperatively The patient's cardiovascular status is consistent with or improved from baseline levels established preoperatively The patient's cardiovascular status is consistent with or improved from baseline levels established preoperatively The patient demonstrates and/or reports adequate pain control throughout the perioperative period The patient received appropriate medication(s), safely administered during the perioperative period Acuity Level PACU I FT Entry 1 Start Time 06/14/20 07:44:00 Stop Time 06/14/20 08:14:00 Acuity Level Acuity Level I Last Modified By: Ruth Hare RN 06/14/20 08:10:23 Finalized By: Ruth Hare RN Document Signatures Signed By: Ruth Hare RN 06/14/20 08:10 Normal [facility] Main OR PACU II Recordon Main OR PACU II Record PACU Phase II Document Type FT Summary Primary Physician: Deion Andres DO Finalized Date/Time: 06/14/20 09:44:44 Pt. Name: BOO MCALLISTER/Sex: 1955 Male Med Rec #: [id number] Physician: Deion Andres DO Financial #: [id number] Pt. Type: A Room/Bed: [facility] Admit/Disch: 06/14/20 06:00:21 - Institution: Case Times PACU II FT Pre-Care Text: Identifies barriers to communication and implements measures to provide psychological support and determines knowledge level Develops individualized plan of care, and ensures continuity of care Maintains patient's dignity and privacy, and maintains patient confidentiality Identifies and reports philosophical, cultural, and spiritual beliefs and values Identifies individual values and wishes concerning care administers prescribed antibiotic therapy and immunizing agents as ordered, Evaluates postoperative tissue perfusion Implements thermoregulation measures, and monitors body temperature Evaluates postoperative respiratory status Evaluates postoperative cardiac status Evaluates postoperative neurological status Assesses pain control, collaborated in initiating patient-controlled analgesia and implements alternative methods of pain control Verifies allergies, administers prescribed medications and solutions, evaluates response to medications Entry 1 In PACU II 06/14/20 08:20:00 Discharge from PACU 06/14/20 09:40:00 II Outcomes Met? Yes Last Modified By: Ely Kurtz RN 06/14/20 09:40:53 Post-Care Text: The patient demonstrates knowledge of the expected response to the operative or invasive procedure The patient's care is consistent with the individualized perioperative plan of care The patient's right to privacy is maintained The patient's value system, lifestyle, ethnicity, and culture are considered, respected, and incorporated into the perioperative plan of care The patient participates in decisions affecting his or her perioperative plan of care. The patient is free from signs and symptoms of infection The patient has wound/tissue perfusion consistent with or improved from baseline levels established preoperatively The patient is at or returning to normothermia at the conclusion of the immediate postoperative period The patient's respiratory function is consistent with or improved from baseline levels established preoperatively The patient's cardiovascular status is consistent with or improved from baseline levels established preoperatively The patient's neurological status is consistent with or improved from baseline levels established preoperatively The patient demonstrates and/or reports adequate pain control throughout the perioperative period The patient received appropriate medication(s), safely administered during the perioperative period Finalized By: Ely Kurtz RN Document Signatures Signed By: Ely Kurtz RN 06/14/20 09:40 Ely Kurtz RN 06/14/20 09:44 Normal [facility] Main OR Preoperative Recordo n 06-14-2020 Main OR Preoperative Record PreOp Document Type FT Summary Primary Physician: Deion Andres DO Finalized Date/Time: 06/14/20 07:47:50 Pt. Name: ELA MCALLISTERYRN [place]./Sex: 1955 Male Med Rec #: [id number] Physician: Deion Andres DO Financial #: [id number] Pt. Type: A Room/Bed: 01/17 Admit/Disch: 06/14/20 06:00:21 - Institution: Case Times PreOp FT Pre-Care Text: Verifies consent for planned procedure, identifies individual values and wishes concerning care, includes family members in perioperative teaching Entry 1 Patient Times. In Pre Surgery 06/14/20 06:05:00 Out Pre Surgery 06/14/20 07:13:00 Outcomes Met? Yes Last Modified By: Ariane Fontenot RN 06/14/20 07:47:49 Post-Care Text: The patient participates in decisions affecting his or her perioperative plan of care Finalized By: Ariane Fontenot RN Document Signatures Signed By: Ariane Fontenot RN 06/14/20 07:47 Normal [facility] Monitor Recordon 06-14-2020 Monitor Record [id number] :127 Normal [facility] Operative Reporton Operative Report Date of Surgery: 06/14/2020 SURGEON: Deion Andres D.O. PREOPERATIVE DIAGNOSIS: Left wrist median neuropathy, carpal tunnel syndrome POSTOPERATIVE DIAGNOSIS: Left wrist median neuropathy, carpal tunnel syndrome OPERATION: Left wrist release transverse carpal ligament with short-arm splint application, static in nature ANESTHESIA: General ESTIMATED BLOOD LOSS: None SPECIMEN: None COMPLICATIONS: None IMPLANTS: None HISTORY/OPERATIVE INDICATIONS: The patient is a 65-year-old white male who presents complaining of persistent paresthesias, dysesthesias about the median nerve distribution of the left wrist. The patient has failed conservative care. He has had appropriate neurodiagnostic testing to identify the etiology. He does appear to be clinically indicated/cost effective for the above procedure and the procedure undertaken this day. INTRAOPERATIVE PATHOLOGY: Upon dissection of the left carpal tunnel from the standard open palmar approach, there is noted to be some thickening of the transverse carpal ligament. No neural pathology is encountered. No hyperemia, ischemia or flattening. The nerve is fully decompressed without event. It is visualized, is not manipulated. PROCEDURE: After informed consent is obtained, the risks, complications, reasonable expectations of the above procedure are discussed at length. The patient is taken to the Operative Suite, placed on the operating room table in supine position. At this point, the patient is given a general anesthetic. A well-padded tourniquet is applied to the left arm. Hand, wrist, forearm are sterilely prepped and draped in the usual surgical fashion at which time, the site verification process is undertaken with a time-out procedure. The limb is exsanguinated with an Esmarch. Tourniquet inflated to 250 mmHg. The standard open palmar approach is utilized. A 2.5 cm incision is made overlying the volar aspect of the wrist area. Dissection is carried sharply through skin with careful attention to all bleeding vessels which were electrocauterized. Dissection is carried down onto the level of the transverse carpal ligament. This area is fully delineated, incised sharply with a 6400 [place] blade. Full decompression is realized with small tenotomy scissors. The nerve is visually inspected, is not manipulated. The area is thoroughly irrigated and closed primarily with 5-0 nylon. The wound is injected with several cc of 0.25% Marcaine plain. The wound is dressed with Bacitracin, Adaptic, sterile 4x4, sterile web roll. A well-padded, well-molded Ortho-Glass static short-arm splint is then applied, overdressed with further web roll and an CARLOS wrap. The patient is subsequently extubated, transferred to the [facility] and taken to the Post Anesthesia Care Unit in stable condition. He will be discharged this day. Rosaura Goodrich Dictated: 06/14/2020 #[id number] Typed: 06/14/2020 #[id number] cc: Esther Larkin D.O. [facility] Comment on above: Result Comment: Elec tronically Signed By: Deion Andres DO\.br\Date and Time Signed: 06/14/20 09:55 EST Outpatient Surgery Discharge Instructionon 06-14-2020 Outpatient Surgery Discharge Instruction [place] [id number] Patient Discharge Instructions PERSON INFORMATION Name: BOO MCALLISTER Date of : 1955 Current Date: 06/14/2020 08:17:25 PHYSICIANS Admitting Physician: Deion Andres DO Discharge Diagnosis: ELA MCALLISTERYRN [place] has been given the following list of follow-up instructions, prescriptions, and patient education materials: IF UNABLE TO CONTACT YOUR PHYSICIAN AND YOU FEEL IT IS AN EMERGENCY, GO TO THE NEAREST EMERGENCY ROOM OR CALL 911 IIAIN JEFFREY A, have received the attached patient education materials/instructions and have verbalized understanding: May we do a follow up call? Yes No I was present when discharge instructions were given Patient Signature Date Clinican/Nurse Signature Date Follow up: Type Location Start [facility] Surgery PAT COVID Testing [facility] 06/21/2020 8:15 AM 06/21/2020 8:30 AM Confirmed Surgery FT [facility] 06/28/2020 8:00 AM 06/28/2020 8:25 AM Confirmed Pharmacy Information: You may receive a survey from [facility] asking you to rate your care experience. Your feedback is important and will help us understand what we do well and how we can improve the quality of care we provide to you, your loved ones and our community. It?s an honor to serve you. Thank you for choosing [facility] HERE ARE THE MEDICATION CHANGES THAT OCCURRED DURING YOUR HOSPITAL STAY New Medications [id number], [address], [place] [id number], [phone] tramadol (Ultram 50 mg Tab) 1-2 tab(s) By Mouth every 4 hours. Take 1-2 every 4-6 hours as needed for pain. Dx: G56.02 Duration: 7 days. Refills: 0. Medications to Continue with No Changes Other Medications acetaminophen 1,000 Milligram By Mouth every 6 hours as needed as needed for pain. atenolol (atenolol 25 mg Tab) 0.5 tab By Mouth every day. atorvastatin (atorvastatin 40 mg Tab) 1 Tablets By Mouth every day. cholecalciferol (Vitamin D3 5000 intl units oral tab) 1 Tablets By Mouth every day. ezetimibe (Zetia) 10 Milligram By Mouth every day. fluticasone nasal (fluticasone 0.05 mg/inh Nasal [place]) 1 Sprays Nasal Inhalation every day. glipiZIDE (glipiZIDE 10 mg ER Tab) 1 Tablets By Mouth 2 times a day. loratadine 10 Milligram By Mouth every day. losartan (Cozaar 100 mg Tab) 1 Tablets By Mouth every day. meloxicam (Mobic) 7.5 Milligram By Mouth every day. metformin (Glucophage 500 mg oral tablet) 2 Tablets By Mouth 2 times a day. multivitamin (Vitamin B Complex oral capsule) 1 Capsules By Mouth every day. naproxen (Aleve 220 mg oral capsule) 1 Capsules By Mouth every 12 hours as needed as needed for pain. omeprazole (Prilosec) 20 Milligram By Mouth every day. simvastatin 40 Milligram By Mouth once a day (at bedtime). venlafaxine (Effexor XR 75 mg Cap-ER) 1 Capsules By Mouth every day. PATIENT EDUCATION INFORMATION Instructions: [place] [place] [facility] OUTPATIENT SURGERY Home Care Instructions Medications You will be given a prescription for pain medication. Please notify the office immediately if you have any allergies to pain medications. About Your Surgical Site Remove the dressing in __5___ days and begin daily dressing changes. Apply Betadine Liquid to the operative site and apply a dry sterile dressing or band-aid once or twice daily. Do not get the incision wet until suture removal. Activity You may gradually progress your activities as comfortably tolerated. Continue to ice and elevate your surgical site for the next 48 hours and continue restricted use. Remain off work until your first office visit. Diet You may resume your regular diet as tolerated. Please remember to take your pain medication with food to avoid stomach upset. Increased liquid intake is encouraged for 48 hours after discharged home. Anesthesia Precautions Do not operate a vehicle (automobile, bicycle, motorcycle), machinery or power tools, or drink alcohol beverages for 24 hours. Do not drink any alcohol beverages while you are taking your pain medication. Arrange for a responsible adult to remain with you for at least 24 hours, possibly longer. You may be drowsy and light-headed from the anesthesia and possibly from your pain medication as well. Expectations of Surgery You may have mild to moderate discomfort for the first several days. This should gradually decrease. Any increased discomfort should be reported to the office. Call the office with any of the following: any persistent or heavy bleeding, temperature above 101.5 degrees, increasing redness, swelling or drainage at the operative site, severe and increasing pain at the operative site, persistent vomiting. About your follow-up office visit You will be given a card with your post-operative date and time for this appointment. Report any problems prior to that time. Driving: Driving is legal, but you must be able to maintain control of your car at all times. 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 It is therefore advised not to drive until after your first office visit following surgery. ___ Deion Andres DO [facility] [address] [place], [place] [address] Reviewed: 08-24 Normal [facility] Patient Education - Texton 0 06-14-2020 Patient Education - Text [place], [place] [facility] OUTPATIENT SURGERY Home Care Instructions Medications You will be given a prescription for pain medication. Please notify the office immediately if you have any allergies to pain medications. About Your Surgical Site Remove the dressing in __5___ days and begin daily dressing changes. Apply Betadine Liquid to the operative site and apply a dry sterile dressing or band-aid once or twice daily. Do not get the incision wet until suture removal. Activity You may gradually progress your activities as comfortably tolerated. Continue to ice and elevate your surgical site for the next 48 hours and continue restricted use. Remain off work until your first office visit. Diet You may resume your regular diet as tolerated. Please remember to take your pain medication with food to avoid stomach upset. Increased liquid intake is encouraged for 48 hours after discharged home. Anesthesia Precautions Do not operate a vehicle (automobile, bicycle, motorcycle), machinery or power tools, or drink alcohol beverages for 24 hours. Do not drink any alcohol beverages while you are taking your pain medication. Arrange for a responsible adult to remain with you for at least 24 hours, possibly longer. You may be drowsy and light-headed from the anesthesia and possibly from your pain medication as well. Expectations of Surgery You may have mild to moderate discomfort for the first several days. This should gradually decrease. Any increased discomfort should be reported to the office. Call the office with any of the following: any persistent or heavy bleeding, temperature above 101.5 degrees, increasing redness, swelling or drainage at the operative site, severe and increasing pain at the operative site, persistent vomiting. About your follow-up office visit You will be given a card with your post-operative date and time for this appointment. Report any problems prior to that time. Driving: Driving is legal, but you must be able to maintain control of your car at all times. 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 It is therefore advised not to drive until after your first office visit following surgery. ___ Deion Andres DO [facility] [address] [place] [address] Reviewed: 08-24 [facility] Progress Note-Physicianon Progress Note-Physician Patient: BOO MCALLISTER Age: 65 years Sex: Male : 1955 Associated Diagnoses: None Author: Deion Andres DO Postoperative Information Procedure: L CTR Preoperative Diagnosis: L CTS. Postoperative Diagnosis: same. Performed by: lauro. Specimens Removed: none. Estimated Blood Loss: 0 ml. Complications: None. [facility] Comment on above: Result Comment: Elec tronically Signed By: Deion Andres DO\.br\Date and Time Signed: 06/14/20 07:47 EST Progress Note-Physicianon Progress Note-Physician Patient: BOO MCALLISTER Age: 65 years Sex: Male : 1955 Associated Diagnoses: None Author: Luis Fernando Dalton Jr., DO Preoperative Information Time patient last ate or drank:=== (NPO since midnight) Anesthesia history: Patient History: No prior problems with anesthesia.. Re-eval prior to induction: Inital eval reviewed: No significant interval change, Surgical H&P documented and on chart. Surgical consent signed and on chart.. Anesthesia results Review of Systems Cardiovascular: Negative except as documented in history of present illness. Respiratory: Negative. Neurologic: Negative. Health Status Allergies: Allergic Reactions (Selected) Severity Not Documented Codeine- Vomit., Allergies (1) Active Reaction codeine vomit Current medications: (Selected) Inpatient Medications Ordered HYDROmorphone 1 mg/mL injectable solution: 0.4 mg = 0.4 mL, Injection, IV Push, q4min PRN Pain for 5 dose(s), Stop date Limited # of times, Routine, Start date 06/13/20 13:39:00 EST Lactated Ringers IV Ally 1000 mL 1,000 mL: 1,000 mL, IV, 100 mL/hr, Routine, Start date 06/13/20 13:39:00 EST, 10 hour(s), Total volume (mL): 1,000, 106.6 kg, 2.32, m2 Lactated Ringers IV Ally 1000 mL 1,000 mL: 1,000 mL, IV, 80 mL/hr, Routine, Start date 06/14/20 7:30:00 EST, 12.5 hour(s), Total volume (mL): 1,000, 106.6 kg, 2.32, m2 Cisco 5/325 Tab: 1 tab(s), Tab, Oral, q4hr PRN Pain 4-7 for 5 day(s), Stop date 06/19/20 7:29:00 EST, Routine, Start date 06/14/20 7:30:00 EST Phenergan 25 mg/mL Injection: 12.5 mg = 0.5 mL, Injection, IV Push, q2min PRN Other (see comment) for 2 dose(s), Stop date Limited # of times, Routine, Start date 06/13/20 13:39:00 EST Zofran 4 mg/2 mL Injection: 4 mg = 2 mL, Injection, IV Push, q4hr PRN Nausea/Vomiting, Routine, Start date 06/14/20 7:30:00 EST Documented Medications Documented Aleve 220 mg oral capsule: 220 mg = 1 cap(s), Oral, q12hr, PRN as needed for pain Cozaar 100 mg Tab: 100 mg = 1 tab(s), Oral, Daily, High blood pressure Effexor XR 75 mg Cap-ER: 75 mg = 1 cap(s), Oral, Daily, Depression Glucophage 500 mg oral tablet: 1,000 mg = 2 tab(s), Oral, BID, Blood glucose Mobic: 7.5 mg, Oral, Daily, Refills(s) 0, Arthritis Prilosec: 20 mg, Oral, Daily, Refills(s) 0, Control of stomach acid Vitamin B Complex oral capsule: 1 cap(s), Oral, Daily, Prophylaxis Vitamin D3 5000 intl units oral tab: 5,000 International_Unit = 1 tab(s), Oral, Daily, Prophylaxis Zetia: 10 mg, Oral, Daily, Refills(s) 0, High cholesterol acetaminophen: 500 mg, Oral, As Directed, Refills(s) 0, Pain atenolol 25 mg Tab: 0.5 tab, Oral, Daily, High blood pressure atorvastatin 40 mg Tab: 40 mg = 1 tab(s), Oral, Daily, High cholesterol fluticasone 0.05 mg/inh Nasal [place]: 1 spray(s), Nasal, Daily, Allergy symptoms glipiZIDE 10 mg ER Tab: 10 mg = 1 tab(s), Oral, BID, Blood glucose loratadine: 10 mg, Oral, Daily, Refills(s) 0, Allergy symptoms simvastatin: 40 mg, Oral, Once a day (at bedtime), Refills(s) 0, High cholesterol Histories Past Medical History: No active or resolved past medical history items have been selected or recorded. Family History: No family history items have been selected or recorded. Procedure history: RD - Repair of retinal detachment ([id number]) on 11/19/2018 at 63 Years. LASIK ([id number]). Colonoscopy (372206635). Endoscopy of parathyroid gland (04584594). Cervical spinal fusion of C4 and C5 and C6 (203094493). Internal fixation of bone of clavicle (62733010). Comments: 06/08/2020 9:22 KENYATTA Fonseca RN, [place] screws in 1979 and screws out 1985 Social History Social & Psychosocial Habits Alcohol 06/08/2020 Use: Current Type: Liquor Frequency: 1-2 times per week Substance Abuse 06/08/2020 Risk Assessment: Denies Substance Abuse Tobacco 06/08/2020 Tobacco Use: 10 or more cigarettes (1/ Smokeless tobacco use: Never Type: Cigarettes Previous treatment: None 06/08/2020 Risk Assessment: Medium Risk . Physical Examination Airway: Mallampati classification: II (soft palate, fauces, uvula visible). Respiratory: Lungs are clear to auscultation. Cardiovascular: Regular rhythm. Review / Management Results review: Lab results 06/08/2020 8:10 EST WBC 7.8 E9/L RBC 5.3 E12/L Hgb 16.0 gm/dL Hct 48.1 % MCV 90.1 fL MCH 30.0 pg MCHC 33.3 gm/dL RDW 14.7 % HI Platelet 197.0 E9/L MPV 8.8 fL Glucose Random 146 mg/dL BUN 19 mg/dL Creatinine 0.9 mg/dL eGFR >60 mL/min/1.73 m2 eGFR AA >60 mL/min/1.73 m2 Sodium Lvl 135 mmol/L Potassium Lvl 4.8 mmol/L Chloride 101 mmol/L CO2 28 mmol/L AGAP 11 mEq/L 06/07/2020 8:03 EST SARS-CoV-2, DENEEN Not Detected . Chest x-ray results * Final Report * Reason For Exam pre op POWERSCRIBE REPORT IMPRESSION: NO EVIDENCE OF ACTIVE CHEST DISEASE. CLINICAL HISTORY: pre op. COMMENT: The heart is normal in size. There is calcification of the aortic arch. The mediastinum is unremarkable. The lungs appear clear. No infiltration nor pleural effusion is evident. There is metallic surgical hardware associated with the lower cervical spine. There is old deformity at the right acromioclavicular joint. Signature Line FINAL REPORT Dictated: 06/08/2020 11:59 am Brice Blevins M.D. Signed (Electronic Signature): 06/08/2020 11:59 am Signed by: Brice Blevins M.D. Transcribed by: GWENDOLYN Technologist: CHRISTIE ETIENNE REPORT This document has an image Result type: XR Chest 2 Views Result date: June 08, 2020 8:24 EST Result status: Auth (Verified) Result title: XR Chest 2 Views Performed by: Brice Blevins M.D. on June 08, 2020 11:59 EST Verified by: Brice Blevins M.D. on June 08, 2020 11:59 EST Encounter info: [id number], Juan Moreno, Outpatient, 06/08/2020 - 06/08/2020 ECG interpretation: SINUS RHYTHM INDETERMINATE AXIS RIGHT BUNDLE BRANCH BLOCK. Plan [place] [employer]hesiologists (ASA) physical status classification: Class III. Anesthetic Preoperative Plan Anesthesia: General. . Anesthetic plan, risks, benefits, and alternatives discussed with the patient and/or family. Patient verbalized understanding. Adverse reactions, complications, and alternatives discujssed. Consent signed and on chart.. [facility] Comment on above: Result Comment: Elec tronically Signed By: Luis Fernando Dalton Jr., DO\.cha\Date and Time Signed: 06/13/20 13:41 EST Coding Summary.on 06-09-2020 Coding Summary. CODING DATE: 021 FINAL [facility] STATUS: Home (Routine DC) PAYOR: [facility] [place] APC DESCRIPTION 5521 Level 1 Imaging without Contrast ADMIT DX: REASON FOR VISIT DX: Z01.818 Encounter for other preprocedural examination FINAL DX: PRINCIPAL: Z01.818 Encounter for other preprocedural examination SECONDARY: PYMT PROC APC STAT DESCRIPTION DOCTOR NAME DATE NOTE: The code number assigned matches the documented diagnosis and / or procedure in the patient's chart. However, the narrative phrase printed from the coding software may appear abbreviated, or result in slightly different terminology. Coded By: Amber Carlson CphT Date Saved: 06/09/2020 03:59 pm Normal [facility] BUNon 06-08-2020 Urea nitrogen [Mass/Vol] 19 mg/dL Normal 10-06 [facility] Comment on above: Performed By: #### 2 479283, 2358801, 8167745, 87702292, 5910020, 7623764 ####[facility] [address] [place] [address] CBC w/Indiceson 06-08-2020 Erythrocyte distribution width (RBC) [Ratio] 14.7 % High 10.9-14.2 [facility] Comment on above: Performed By: #### 2 797979, 6070826, 5716595, 58963209, 5882917, 4133769 ####[facility] [address] [place] [address] Hematocrit (Bld) [Volume fraction] 48.1 % Normal 37.7-49.0 [facility] Comment on above: Performed By: #### 2 769053, 3295511, 7470370, 35693425, 6038552, 5678414 ####[address] [place] [address] Hemoglobin (Bld) [Mass/Vol] 16.0 g/dL Normal 13.5-17.5 [facility] Comment on above: Performed By: #### 2 978883, 4186281, 3881630, 71047115, 9451454, 8313612 ####[address] [address] MCH (RBC) [Entitic mass] 30.0 pg Normal 27.0-34.0 [facility] Comment on above: Performed By: #### 2 330273, 9945550, 8575505, 52456238, 4271403, 7988536 ####[address] [address] MCHC (RBC) [Mass/Vol] 33.3 g/dL Normal 31.4-36.0 [facility] Comment on above: Performed By: #### 2 345464, 5761208, 8534902, 65499343, 4046818, 6167542 ####[address] [address] MCV (RBC) [Entitic vol] 90.1 fL Normal 80.0-100.0 [facility] Comment on above: Performed By: #### 2 374369, 3469002, 1075074, 32243152, 3278673, 7168103 ####[address] [address] Platelet mean volume (Bld) [Entitic vol] 8.8 fL Normal 6.4-10.8 [facility] Comment on above: Performed By: #### 2 587157, 3361157, 0604630, 20782272, 6548856, 2896997 ####[address] [address] Platelets (Bld) [#/Vol] 197.0 E9/L Normal 150.0-500.0 [facility] Comment on above: Performed By: #### 2 693581, 9422662, 3760903, 52105470, 0312247, 0665772 ####[facility] [address] [place] [address] RBC (Bld) [#/Vol] 5.3 E12/L Normal 4.3-5.9 [facility] Comment on above: Performed By: #### 2 335560, 4745021, 2902096, 17887087, 5124783, 7168009 ####[facility] [address] [place] [address] WBC corrected for nucl RBC Auto (Bld) [#/Vol] 7.8 E9/L Normal 4.0-11.0 [facility] Comment on above: Performed By: #### 2 239952, 2857417, 9673580, 97258643, 6876949, 1567343 ####[facility] [address] [place] [address] Consent for Procedure/Surger yon 06-08-2020 Consent for Procedure/Surgery [id number]#1.00CD:1 27 Normal [facility] Consent for Treatmenton 05-20 Consent for Treatment [id number]#1.00CD: 127 Normal [facility] Creatinineon 06-08-2020 Creatinine [Mass/Vol] 0.9 mg/dL Normal 0.5-1.3 [facility] Comment on above: Performed By: #### 2 746810, 4313411, 0537208, 18434051, 9466649, 3966173 ####[facility] [address] [place] [address] Glucoseon 06-08-2020 Glucose [Mass/Vol] 146 mg/dL Normal 55-199 [facility] Comment on above: Performed By: #### 2 616039, 2364031, 2474649, 33026289, 2760709, 7471885 ####[facility] [address] [place] [address] History and Physicalon 06-08 History and Physical [id number]#1.00CD:1 27 Normal [facility] Lyteson 06-08-2020 Anion gap [Moles/Vol] 11 mmol/L Normal 6-16 [facility] Comment on above: Performed By: #### 2 210103, 8908409, 3789658, 75742024, 8234290, 4680588 ####[facility] [address] [place] [address] Chloride [Moles/Vol] 101 mmol/L Normal 101-111 [facility] Comment on above: Performed By: #### 2 526697, 4887312, 9415313, 03247856, 0931617, 0285420 ####[facility] [address] [place] [address] CO2 [Moles/Vol] 28 mmol/L Normal 21-31 [facility] Comment on above: Performed By: #### 2 838867, 7083729, 9039500, 93265031, 5996700, 3759553 ####[facility] [address] [place] [address] Potassium [Moles/Vol] 4.8 mmol/L Normal 3.5-5.3 [facility] Comment on above: Performed By: #### 2 795784, 9021115, 1513060, 65129362, 1606502, 4717639 ####[facility] [address] [place] [address] Sodium [Moles/Vol] 135 mmol/L Normal 135-145 [facility] Comment on above: Performed By: #### 2 107082, 9439977, 3567718, 12342603, 2887664, 1577413 ####[facility] [address] [place] [address] Priority Order-Musa 2020 Priority Order-STAT Comment [facility] Comment on above: Result Comment: Rece ived Performed at: [facility] [address] [place] [id number] MD Christine London Performed By: #### 2 [id number], SARS-CoV-2, DENEEN #### [facility] [address] [place] [address] SARS-CoV-2, NAAon 06-08-2020 SARS CORONAVIRUS 2 RNA:PRTHR:PT:RESPIR ATORY:ORD:PROBE.AMP .TAR Not Detected Not Detected [facility] Comment on above: Result Comment: This nucleic acid amplification test was developed and its performance characteristics determined by [facility]. Nucleic acid amplification tests include RT-PCR and TMA. This test has not been FDA cleared or approved. This test has been authorized by FDA under an Emergency Use Authorization (EUA). This test is only authorized for the duration of time the declaration that circumstances exist justifying the authorization of the emergency use of in vitro diagnostic tests for detection of SARS-CoV-2 virus and/or diagnosis of COVID-19 infection under section 564(b)(1) of the Act, 21 U.S.C. 360bbb-3(b) (1), unless the authorization is terminated or revoked sooner. When diagnostic testing is negative, the possibility of a false negative result should be considered in the context of a patient's recent exposures and the presence of clinical signs and symptoms consistent with COVID-19. An individual without symptoms of COVID-19 and who is not shedding SARS-CoV-2 virus would expect to have a negative (not detected) result in this assay. Performed at: [facility] [address] [place] [id number] MD Christine London Performed By: #### 2 [id number], SARS-CoV-2, DENEEN #### [facility] [address] [place] [address] XR Chest 2 Viewson 1 XR Chest 2 Views Exam Date/Time: 06/08/2020 08:24 EST Reason for Exam: pre op Report IMPRESSION: NO EVIDENCE OF ACTIVE CHEST DISEASE. CLINICAL HISTORY: pre op. COMMENT: The heart is normal in size. There is calcification of the aortic arch. The mediastinum is unremarkable. The lungs appear clear. No infiltration nor pleural effusion is evident. There is metallic surgical hardware associated with the lower cervical spine. There is old deformity at the right acromioclavicular joint. FINAL REPORT Dictated: 06/08/2020 11:59 am Brice Blevins M.D. Signed (Electronic Signature): 06/08/2020 11:59 am Signed by: Brice Blevins M.D. Transcribed by: GWENDOLYN Technologist: CHRISTIE Normal [facility] eGFRon 06-08-2020 GFR/1.73 sq M predicted among blacks MDRD (S/P/Bld) [Vol rate/Area] mL/min/{1.73_m2} Normal >=59 [facility] Comment on above: Order Comment: Order added by Discern Expert. Result Comment: eGFR is race adjusted. AA=. Performed By: #### 2 116830, 1302069, 1424631, 68857365, 5472282, 5052385 ####[facility] [address] [place] [address] GFR/1.73 sq M predicted among non-blacks MDRD (S/P/Bld) [Vol rate/Area] mL/min/{1.73_m2} Normal >=59 [facility] Comment on above: Order Comment: Order added by Discern Expert. Result Comment: Cycle Liaison sera kidney disease could be indicated at eGFR's of less than 60 mL/min/1.73m2. Kidney failure is indicated at less than 15 mL/min/1.73m2. Performed By: #### 2 600362, 1525974, 8435959, 55209983, 0592097, 2754390 ####[facility] [address] [place] [address] Encounters Encounter Date Encounter Type Care Provider Facility Start: 05-27-2023 End: 05-27-2023 ambulatory Juvenal Disla Facility:[facility] Start: 11-13-2021 End: 11-14-2021 ambulatory CORBIN COLFAX Facility: Payers Date Payer Category Payer Self-pay 2018 Unknown [id number] 1955 Unknown [id number] Clinical Note 02-11-2022 Note Date & Type Note Facility 02-11-2022 Note PROCEDURE: Without I V contrast axial helical 1.25 mm slice thickness low dose images of the chest performed for lung cancer screening. FINDINGS: No suspicious lung nodule or mass. Mild reticulation (interstitial prominence) greatest involvement right upper/mid chest. Mild peribronchial thickening. No bronchiectasis or parenchymal consolidation. No pleural or pericardial effusion. Small volume hilar, mediastinal lymph nodes largest right lower paratracheal aggregate 1.0 x 2.2 cm. IMPRESSION: 1. Benign findings. 2. Mild interstitial prominence consistent with mild interstitial lung disease not consistent with idiopathic pulmonary fibrosis. LUNG- RADS: CATEGORIES Category 0: Incomplete: Additional imaging Categories 1 &2: Negative/Benign: Continue annual screening Category 3: Probable benign; 6 months LDCT CATEGORY 3s Clinical significant or potentially clinically significant findings. Category 4A/B Suspicious: 4A: 3 month LDCT; PET/CT when >8 mm solid nodule component exists 4B: Chest CT w/wo contrast; PET/CT and/or biopsy Report reported and signed by Jesus Mason on 02/13/2022 1059 [facility] Grade Recorder Summary Purpose Family History No Family History Records FoundNo Family History Records FoundNo Family History Records FoundNo Family History Records Found Advance Directives No Advanced Directives Records FoundNo Advanced Directives Records FoundNo Advanced Directives Records FoundNo Advanced Directives Records Found Procedure Findings Note Patient: BOO MCALLISTER Sonal Manzano RN: 28-63-11 Age: 65 years Sex: Male : 1955 Associated Diagnoses: None Author: Luis Fernando Dalton Jr., DO Postoperative Information Post Operative Note: Post Anesthesia Care Unit. Anesthetic utilized: General. Health Status Allergies: Allergic Reactions (Selected) Severity Not Documented Codeine- Vomit. Problem list: All Problems Diabetes / SNOMED CT 621034279 / Confirmed Smoker / SNOMED CT 678966318 / Confirmed Added secondary to documentation in Social History. Acid reflux / SNOMED CT 807702892 / Confirmed Carpal tunnel syndrome / SNOMED CT 16213318 / Confirmed Resolved: HTN (hypertension) / SNOMED CT 8738883360 Resolved: Hypercholesterolemia / SNOMED CT 73938871 Resolved: Depression / SNOMED CT 78860360 Physical Examination Vital Signs 06/14/2020 9:27 EST Temperature Oral 36.5 DegC Heart Rate Monitored 58 bpm LOW Respiratory Rate 15 br/min Systolic Blood Pressure 130 mmHg Diastolic Blood Pressure 61 mmHg Blood Pressure Location Left arm (more content not included)... Note Patient: BOO MCALLISTER Sonal Manzano RN: 28-63-11 Age: 65 years Sex: Male : 1955 Associated Diagnoses: None Author: Gaurav Amado Jr, DO Postoperative Information Post Operative Note: Post Anesthesia Care Unit. Anesthetic utilized: General. Health Status Allergies: Allergic Reactions (Selected) Severity Not Documented Codeine- Vomit. Problem list: All Problems Carpal tunnel syndrome / SNOMED CT 60083875 / Confirmed Diabetes / SNOMED CT 009736544 / Confirmed Acid reflux / SNOMED CT 872778637 / Confirmed Smoker / SNOMED CT 113490301 / Confirmed Added secondary to documentation in Social History. Resolved: Depression / SNOMED CT 09793024 Resolved: Hypercholesterolemia / SNOMED CT 85348496 Resolved: HTN (hypertension) / SNOMED CT 2840726080 Physical Examination Vital Signs 06/28/2020 9:58 EST Temperature Temporal Artery 36.5 DegC Heart Rate Monitored 57 bpm LOW Respiratory Rate 16 br/min Systolic Blood Pressure 130 mmHg Diastolic Blood Pressure 67 mmHg Blood Pressure Location (more content not included)... Additional Source Comments (unrecognized sect ion and content) No Status Records FoundNo Status Records FoundNo Status Records FoundNo Status Records Found INFORMATION SOURCE (unrecogn ized section and content) DATE CREATED AUTHOR 08/29/2020 [facility] DATE CREATED AUTHOR AUTHOR'S ORGANIZ ATION 12/31/2021 [facility] pital DATE CREATED AUTHOR AUTHOR'S ORGANIZ ATION 02/18/2022 [facility] dical Specialist DATE CREATED AUTHOR AUTHOR'S ORGANIZ ATION 05/28/[address] [facility] FOR RECORDS PERTAINING TO PATIENTS WHO ARE OR HAVE BEEN ENROLLED IN A CHEMICAL DEPENDENCY/SUBSTANCEABUSE PROGRAM, SOME INFORMATION MAY BE OMITTED. This clinical summary was aggregated from multiple sources. Caution should be exercised in using it in the provision of clinical care. This summary normalizes information from multiple sources, and as a consequence, information in this document may materially change the coding, format and clinical context of patient data. In addition, data may be omitted in some cases. CLINICAL DECISIONS SHOULD BE BASED ON THE PRIMARY CLINICAL RECORDS. [facility] [employer] [place] [facility] [email or web address] [phone] no warranty or guarantee [id number] the accuracy [phone] completeness of information in this [id number]
== END 2023-05-28 10:56 | disposition home or self-care (01) ==
LOC: RAD 10:56
PROVIDERS: PCP Nurse Practitioner Family; Visit Provider Podiatrist Foot & Ankle Surgery
DX: M25.571 Pain in right ankle and joints of right foot (principal); M20.11 Hallux valgus (acquired), right foot
CPT/HCPCS: 73610; 73630